=== PATIENT | female | born 1995 | race Caucasian/White ===

== ENCOUNTER 2019-05-29 07:37 | Inpatient (IN) ==
--- NOTE | 2019-05-29 11:43 | Progress Note ---
[facility] Anesthesia Checklist - Structural Data Admitted From: Home Planned Operative Procedure/s: exp laparotomy Consent for Planned Operative Procedure(s) Verified: Yes - Additional verifications Anesthesia Reactions: No Hx Blood Transfusions: No Blood Transfusion Reaction: No - Airway Assessment C-Spine Mobility Assessed: Yes TMJ Mobility Assessed: Yes Dentition: Good Dentition - Neurological Assessment Level of Consciousness: Awake, Alert, Appropriate - Anesthesia Plan Anesthesia Risk discussed: Yes Anesthesia Plan: Verified ASA Class: II Anesthesia Type: General Acuity:: asa2 [facility] History I have reviewed the patient's past medical history: Yes Medical History: Denies:: Cancer, Diabetes Mellitus Type 1, Diabetes Mellitus Type 2, Internal Pacemaker, MRSA, Seizures *Have you ever received a pneumonia vaccine?: No *Have you received a flu vaccine this season?: No Other Medical History: Denies: Blood Transfusion Reaction Anesthesia experience/problems:: none Other Surgeries: No: Pacemaker Amputation: No Fractures: No - *Social History Educational Level: Attended College Smoking Status: Never smoker Alcohol Intake: never Substance Use Type: denies use *Occupational Status:: employed Housing: house Household Members: spouse *Travel in the last 8 weeks: None Family Hx:: Coronary Artery Disease, Diabetes, Heart Attack, Hyperlipidemia, Hypertension, Kidney Disease
--- NOTE | 2019-05-29 11:44 | Progress Note ---
[facility] Anesthesia Record Part I Intake, IV Amount: 1,500 Estimated blood loss (mL): 150 Urine output (mL): 150 Blood Pressure: 122/59 SaO2: 95 Pulse Rate: 92 Respiratory Rate: 12 Temperature: 98.3 F Patient is:: Awake, Stable Stable to PACU at:: 11:40
--- NOTE | 2019-05-29 11:45 | Progress Note ---
[facility] Anesthesia Record Part II Discharge Time: 12:10 Destination: floor PACU nurse assessment reviewed?: Yes Patient Condition:: Good Anesthesia Complications:: None Swallowing reflex intact?: Yes Cyanosis?: No
--- NOTE | 2019-05-29 12:10 | Operative Note ---
Date of procedure: 05/29/19 Pre-op Diagnosis:: 1. Pelvic pain 2. Left adnexal mass 3. Previous C Section Post-op Diagnosis:: 1. Pelvic pain 2. Left adnexal mass 3. Previous C Section 4. Pelvic adhesions Procedure performed:: Exploratory laparotomy, left oophorectomy Surgeon:: Shell Roque MD FRONT MAN:: Isai Caicedo Anesthesia: GETA Estimated blood loss (mL): 150 Operative findings:: large left adnexal mass, 13 x 9cm Findings included fat and hair within the mass, c/w dermoid cyst Operative note:: The patient was taken to the operating room and general anesthesia was administered without difficulty. She was prepped and draped in the supine position. A Pfannenstiel skin incision was made approximately 2 cm above the pubic symphysis with a scalpel and carried down to the underlying layer of fascia. The fascia was incised in the midline and extended laterally sharply. The rectus muscles were sharply dissected off the fascia and in the midline. The peritoneum was entered sharply, with good visualization of the underlying structures. The peritoneal incision was extended bluntly. There were a moderate amount of pelvic adhesions extending to the peritoneum, which required approximately 25 minutes of dissection. Once the pelvis had adequate exposure, the left adnexal mass was elevated out of the deep pelvis and brought through the incision. The uterus was also visible and appeared normal; the right ovary was identified and also appeared normal. The left ovary was grossly enlarged, and completely encompassed by the mass. There were superficial areas that were both solid texture and very hard, as well as softer fatty areas. The Enseal was used to excise the left ovary, with excellent hemostasis at the pedicle. Once the mass was removed, it was opened on the du stand, and noted to contain fat and hair. The pelvis was copiously irrigated with a solution of sterile water. The peritoneum was closed with 2-0 Vicryl in a running fashion. The fascia was closed with #1 Vicryl in a running fashion. The subcutaneous fat was reapproximated with 2-0 vicryl and the skin was closed with carmen. The patient tolerated the procedure well; sponge/lap/needle and instrument counts were correct 2. She was taken to the PACU awake in stable condition. Estimated blood loss: 150 cc. Condition: stable Disposition: PACU Specimens:: left ovary/adnexal mass Complications:: None
[2019-05-30 06:39] LABS: Hematocrit 35.4 % (37.0-47.0); Hemoglobin 11.2 g/dL (12.2-16.2)
--- NOTE | 2019-05-30 13:44 | Pharmacy Consult Notes ---
[facility] Pharmacy VTE Monitoring - Patient Demographics Admission date: 05/30/19 Report Date: 05/30/19 Time: 13:43 Allergies/Adverse Reactions: Patient Allergies No Known Allergies Allergy (Verified 05/29/19 08:12) Height: 1.65 m Weight: 95.254 kg Patient Problems: Current Active Problems Pelvic adhesions (Acute) - VTE Risk Labs: VTE Related Lab Results Hgb 11.2 g/dL (12.2-16.2) L 05/30/19 06:15 Hct 35.4 % (37.0-47.0) L 05/30/19 06:15 - Prophylaxis VTE Prophylaxis Ordered?: Yes Types of VTE Prophylaxis: IPCS Thigh High Location of Applied Device: Bilateral Lower Extremeties
--- NOTE | 2019-05-30 18:28 | Progress Note ---
Internal Medicine - PN: Subj *Date: 05/30/19 *Time: 18:27 Interval history: Low grade temp elevation--abd soft--wound clean--will get CBC Exam Vital signs and Labs for Last 24 Hours: Temp Pulse Resp BP Pulse Ox 98.8 F 98 H 16 125/78 98 05/30/19 16:00 05/30/19 16:00 05/30/19 16:00 05/30/19 16:00 05/30/19 16:00 Laboratory Results - last 24 hr 05/30/19 06:15: Hgb 11.2 L, Hct 35.4 L I & O for Last 24 hours: Intake & Output 05/28/19 05/29/19 05/30/19 05/31/19 11:59 11:59 11:59 11:59 Intake Total 1500 / 1500 4923 / 4923 Output Total 150 / 150 1350 / 1350 Balance 1350 / 1350 3573 / 3573 Weight 210 lb
[2019-05-30 19:32] LABS: Red Cell Distribution Width 13.4 % (11.5-17.5)
[2019-05-30 19:36] LABS: Basophils % 0.2 % (0.1-2.0); Eosinophils # 0.1 K/mm3 (0.0-0.4); Eosinophils % 0.8 % (0.1-12.0); Hematocrit 35.9 % (37.0-47.0); Hemoglobin 11.7 g/dL (12.2-16.2); Lymphocytes # 2.1 K/mm3 (0.7-4.5); Lymphocytes % 22.1 % (10-50); Mean Corpuscular HGB Conc 32.7 g/dL (31.8-35.4); Mean Corpuscular Volume 86.7 fl (81-99); Mean Platelet Volume 8.3 fl (7.4-10.4); Monocytes # 0.4 K/mm3 (0.1-1.0); Monocytes % 4.4 % (1.7-9.3); Neutrophils % 72.5 % (37.0-80.0); Platelet Count 242 K/mm3 (142-424); Red Blood Count 4.14 M/mm3 (4.20-5.40); White Blood Count 9.7 K/mm3 (4.8-10.8)
--- NOTE | 2019-05-31 08:22 | Progress Note ---
Internal Medicine - PN: Subj *Date: 05/31/19 *Time: 08:20 Interval history: This is postop day #2. The patient is now afebrile, but she did have a temp of 102 orally at one time during the night, treated with Tylenol. Her abdomen is soft. Her wound is clean. Her calves are nontender. She is using her spirometer, but is not deep breathing. CBC is normal. I am going to get a chest x-ray this morning. Will consider antibiotics if she spikes another temperature. Exam Vital signs and Labs for Last 24 Hours: Temp Pulse Resp BP Pulse Ox 98.9 F 99 H 16 127/66 93 L 05/31/19 04:00 05/31/19 04:00 05/31/19 04:00 05/31/19 04:00 05/31/19 04:00 Laboratory Results - last 24 hr 05/30/19 19:05: WBC 9.7, RBC 4.14 L, Hgb 11.7 L, Hct 35.9 L, MCV 86.7, MCH 28.4, MCHC 32.7, RDW 13.4, Plt Count 242, MPV 8.3, Neut % (Auto) 72.5, Lymph % (Auto) 22.1, [place] % (Auto) 4.4, Eos % (Auto) 0.8, Baso % (Auto) 0.2, Neut # (Auto) 7.0, Lymph # (Auto) 2.1, [place] # (Auto) 0.4, Eos # (Auto) 0.1, Baso # (Auto) 0.0 I & O for Last 24 hours: Intake & Output 05/28/19 05/29/19 05/30/19 05/31/19 11:59 11:59 11:59 11:59 Intake Total 1500 / 1500 4923 / 4923 2496 / 2496 Output Total 150 / 150 1350 / 1350 Balance 1350 / 1350 3573 / 3573 2496 / 2496 Weight 210 lb
--- NOTE | 2019-05-31 09:44 | Progress Note ---
Internal Medicine - PN: Subj *Date: 05/31/19 *Time: 09:43 Interval history: Temp this morning again 102.5 p.o. Chest x-ray report is pending. Going to repeat her CBC and get blood cultures and a urinalysis start her empirically on Levaquin 500 mg IV daily. Exam Vital signs and Labs for Last 24 Hours: Temp Pulse Resp BP Pulse Ox 98.9 F 99 H 16 127/66 93 L 05/31/19 04:00 05/31/19 04:00 05/31/19 04:00 05/31/19 04:00 05/31/19 04:00 Laboratory Results - last 24 hr 05/30/19 19:05: WBC 9.7, RBC 4.14 L, Hgb 11.7 L, Hct 35.9 L, MCV 86.7, MCH 28.4, MCHC 32.7, RDW 13.4, Plt Count 242, MPV 8.3, Neut % (Auto) 72.5, Lymph % (Auto) 22.1, [place] % (Auto) 4.4, Eos % (Auto) 0.8, Baso % (Auto) 0.2, Neut # (Auto) 7.0, Lymph # (Auto) 2.1, [place] # (Auto) 0.4, Eos # (Auto) 0.1, Baso # (Auto) 0.0 I & O for Last 24 hours: Intake & Output 05/28/19 05/29/19 05/30/19 05/31/19 11:59 11:59 11:59 11:59 Intake Total 1500 / 1500 4923 / 4923 2496 / 2496 Output Total 150 / 150 1350 / 1350 Balance 1350 / 1350 3573 / 3573 2496 / 2496 Weight 210 lb
[2019-05-31 09:53] LABS: Microscopic, Urine URINE MICROSCOPIC (MICROSCOPIC)
[2019-05-31 10:29] LABS: Basophils % 0.3 % (0.1-2.0); Eosinophils % 0.4 % (0.1-12.0); Hematocrit 35.1 % (37.0-47.0); Hemoglobin 11.5 g/dL (12.2-16.2); Lymphocytes # 1.9 K/mm3 (0.7-4.5); Mean Corpuscular HGB Conc 32.7 g/dL (31.8-35.4); Mean Corpuscular Volume 85.5 fl (81-99); Mean Platelet Volume 8.2 fl (7.4-10.4); Monocytes # 0.6 K/mm3 (0.1-1.0); Monocytes % 6.6 % (1.7-9.3); Neutrophils # 6.8 K/mm3 (1.8-7.8); Neutrophils % 72.8 % (37.0-80.0); Platelet Count 238 K/mm3 (142-424); Red Blood Count 4.11 M/mm3 (4.20-5.40); Red Cell Distribution Width 13.3 % (11.5-17.5); White Blood Count 9.4 K/mm3 (4.8-10.8)
[2019-05-31 11:30] LABS: Appearance,Urine CLEAR (Clear); Bilirubin,Urine Negative (Negative); Blood, Urine Negative (Negative); Color,Urine YELLOW (Yellow); Glucose,Urine (UA) Negative (Negative); Ketones,Urine Negative (Negative); Leukocyte Esterase,Urine Negative (Negative); Protein,Urine Negative (Negative); Specific Gravity, Urine 1.015 (1.005-1.030); Urobilinogen,Urine 0.2 EU/dl (0.2)
[2019-05-31 11:38] LABS: Bacteria,Urine Trace /lpf; Squamous Epithelial Cell,Urine Occasional #/hpf (0-5); WBC,Urine Occasional #/hpf (0-3)
--- NOTE | 2019-06-01 08:55 | Progress Note ---
Internal Medicine - PN: Subj *Date: 06/01/19 *Time: 08:54 (This is postop day #3. The patient is afebrile at this time, but she did spike a temp again yesterday and has been started on oral Levaquin. Her abdomen is soft. Her wound is clean. Willian remain in situ. She is eating and ambulating and has had a bowel movement. She will be discharged today on oral antibiotics.) Exam Vital signs and Labs for Last 24 Hours: Temp Pulse Resp BP Pulse Ox 98.3 F 88 20 147/91 H 95 06/01/19 08:00 06/01/19 08:00 06/01/19 08:00 06/01/19 08:00 06/01/19 08:00 Laboratory Results - last 24 hr 05/31/19 09:25: Urine Color Yellow, Urine Appearance Clear, Urine pH 6.0, Ur Specific [place] 1.015, Urine Protein Negative, Urine Glucose (UA) Negative, Urine Ketones Negative, Urine Blood Negative, Urine Nitrate Negative, Urine Bilirubin Negative, Urine Urobilinogen 0.2, Ur Leukocyte Esterase Negative, Urine RBC None, Urine WBC Occasional, Ur Squamous Epith Cells Occasional, Urine Bacteria Trace 05/31/19 10:00: WBC 9.4, RBC 4.11 L, Hgb 11.5 L, Hct 35.1 L, MCV 85.5, MCH 28.0, MCHC 32.7, RDW 13.3, Plt Count 238, MPV 8.2, Neut % (Auto) 72.8, Lymph % (Auto) 20.0, [place] % (Auto) 6.6, Eos % (Auto) 0.4, Baso % (Auto) 0.3, Neut # (Auto) 6.8, Lymph # (Auto) 1.9, [place] # (Auto) 0.6, Eos # (Auto) 0.0, Baso # (Auto) 0.0 I & O for Last 24 hours: Intake & Output 05/29/19 05/30/19 05/31/19 06/01/19 11:59 11:59 11:59 11:59 Intake Total 1500 / 1500 4923 / 4923 2496 / 2496 1475 / 1475 Output Total 150 / 150 1350 / 1350 Balance 1350 / 1350 3573 / 3573 2496 / 2496 1475 / 1475 Weight 210 lb
--- NOTE | 2019-06-01 08:59 | Discharge Summary ---
General - General Admission date:: 05/29/19 Discharge date: 06/01/19 (This 23-year-old white female was admitted on 05/29/[address] Roque and taken to the operating room for a large left adnexal mass (pathology pending, but presumably a dermoid cyst). She underwent an exploratory laparotomy and left oophorectomy without apparent complications. Postoperatively, she did well initially. She then spiked a temp on 2 occasions to 102+ orally. A septic work-up included a CBC and urinalysis (both normal) and a normal chest x-ray. Blood cultures were taken and are pending. Her calves have remained nontender. Her wound is clean. Willian are in situ. Her abdomen is soft. She is eating and ambulating, and has had a bowel movement. She has been started empirically on p.o. Levaquin, 500 mg daily, and will be discharged today on that medication. Her hemoglobin is 11.5 g. He is not a smoker. She is given appropriate instructions as to diet, exercise, and wound care, and she is to call Dr. Roque's office tomorrow to set up an appointment for later in the week for staple removal and further evaluation.) Objective Vital signs: Temp Pulse Resp BP Pulse Ox 98.3 F 88 20 147/91 H 95 06/01/19 08:00 06/01/19 08:00 06/01/19 08:00 06/01/19 08:00 06/01/19 08:00 Results Labs on day of discharge: Labs from last 24 hours 05/31/19 05/31/19 10:00 09:25 WBC 9.4 RBC 4.11 L Hgb 11.5 L Hct 35.1 L MCV 85.5 MCH 28.0 MCHC 32.7 RDW 13.3 Plt Count 238 MPV 8.2 Neut % (Auto) 72.8 Lymph % (Auto) 20.0 [place] % (Auto) 6.6 Eos % (Auto) 0.4 Baso % (Auto) 0.3 Neut # (Auto) 6.8 Lymph # (Auto) 1.9 [place] # (Auto) 0.6 Eos # (Auto) 0.0 Baso # (Auto) 0.0 Urine Color Yellow Urine Appearance Clear Urine pH 6.0 Ur Specific [place] 1.015 Urine Protein Negative Urine Glucose (UA) Negative Urine Ketones Negative Urine Blood Negative Urine Nitrate Negative Urine Bilirubin Negative Urine Urobilinogen 0.2 Ur Leukocyte Esterase Negative Urine RBC None Urine WBC Occasional Ur Squamous Epith Cells Occasional Urine Bacteria Trace Discharge Plan - Patient Discharge Instructions - Follow up Plan Home Medications: Home Medications Medication Instructions Recorded Confirmed Type Hydrocodone/Acetaminophen [[place] 1 tab PO TID PRN 3 Days #10 tab 05/27/19 05/29/19 Rx 7.5-325 Tablet] Ondansetron [Zofran 4mg ODT] 4 mg PO Q6H PRN 05/30/19 05/30/19 History Prescriptions/Medication Reconciliation: No Action Hydrocodone/Acetaminophen [[place] 7.5-325 Tablet] 1 tab PO TID PRN 3 Days #10 tab PRN Reason: Moderate Pain Ondansetron [Zofran 4mg ODT] 4 mg PO Q6H PRN PRN Reason: Nausea And Vomiting - Problem Reconciliation Problems Reviewed?: Yes
== END 2019-06-01 09:42 | disposition home or self-care (01) | DRG 743 ==
LOC: OB 07:37 → OR 07:37 → OBSVTOIN 13:45 → OB 13:57
PROVIDERS: ADMIT Obstetrics & Gynecology; ATTEND Obstetrics & Gynecology
CPT/HCPCS: 36415; 71010; 71045; 81001; 85014; 85018; 85025; 87040; 94761; 96374; J1956; J2405; J2710

== ENCOUNTER 2020-04-03 15:02 | Emergency (ER) | payer BC, SELFPAY ==
[2020-04-03 15:03] VITALS: BP 136/78; PULSE 108; RESP 20; TEMP 36.8; O2SAT 97; BMI 34.1
--- NOTE | 2020-04-03 16:02 | HMH.EDUTC ---
[facility] [place]ression: Viral syndrome Disposition: Home, Self-Care Condition on Discharge: Good Instructions: DI for Viral Syndrome Additional Instructions: Drink plenty of fluids. Take tylenol or ibuprofen for pain or fever. Take the medications as directed. Follow up with your regular doctor. GO TO THE ER FOR ANY WORSENING SYMPTOMS Off work and self quarantine until the results of your COVID-19 test are back. Prescriptions: Ondansetron [Zofran 4mg ODT] 4 mg PO Q8HP PRN #10 tab.rapdis PRN Reason: Nausea Transmission Status: Received by [facility] # Azithromycin [Z-Jose Guadalupe 250mg Tab*] 250 mg PO UD DOSE PK #6 tab Transmission Status: Received by [facility] # Referrals: Provider,Referral, MD [Primary Care Provider] - Forms: Work/School Release Time of Disposition: 16:08 Medical Decision Making - Medical Records Medical records reviewed: No: I reviewed the patient's medical records. - Braxton Inquiry Pt receiving controlled substance: No Vital Signs: 04/03/20 15:03 04/03/20 16:20 Temperature 98.3 F 98.3 F Temperature Source Oral Oral Pulse Rate 108 H Pulse Rate [Radial] 108 H Respiratory Rate 20 20 Blood Pressure 136/78 Blood Pressure [Right Arm] 136/78 Blood Pressure Mean [Right Arm] 97 Blood Pressure Source Automatic Cuff Blood Pressure Source [Right Arm] Automatic Cuff Blood Pressure Position Sitting Blood Pressure Position [Right Arm] Sitting 02 Sat by Pulse Oximetry 97 Oxygen Delivery Method Room Air Room Air - Lab Data Lab results reviewed: Yes: I reviewed the patient's lab results. Lab Results 04/03/20 15:37: Influenza Type A Ag Negative, Influenza Type B Ag Negative Orders (Tests/Meds): ORDERS Category Date Time Status SARS-CoV-2, ALIREZA Stat Lab 04/03/20 15:55 Re[place] [facility] [place] - General Stated complaint: Nausea, body aches, little cough Time Seen by Provider: 04/03/20 16:02 Mode of Arrival: Ambulatory Source of Information: Patient Limitations: No Limitations Description of Symptoms (Recalled from Triage Doc. by RN): nausea,diarrhea, headache, body aches, weakness HEENT Symptoms (Recalled from RN notes): No Resp Symptoms (Recalled from RN notes): No Skin Symptoms (Recalled from RN notes): No MS Symptoms (Recalled from RN notes): No Functional Status (Recalled from RN notes): wnl - History of Present Illness Provider Complaint: She c/o n/v/d, mild dry cough and feeling bad since yesterday. - Related Data Home Medications Medication Instructions Recorded Confirmed Ondansetron [Zofran 4mg ODT] 4 mg PO Q6H PRN 05/30/19 06/04/19 levofloxacin 500 mg tablet PO #10 tab 06/04/19 06/04/19 Previous Rx's Medication Instructions Recorded Hydromorphone HCl [Dilaudid 2mg 2 mg PO Q6HP PRN #20 tab 06/01/19 tablet] Azithromycin [Z-Jose Guadalupe 250mg Tab*] 250 mg PO UD DOSE PK #6 tab 04/03/20 Ondansetron [Zofran 4mg ODT] 4 mg PO Q8HP PRN #10 tab.rapdis 04/03/20 Allergies Allergy/AdvReac Type Severity Reaction Status Date / Time No Known Allergies Allergy Verified 06/04/19 08:56 - Worker's Comp Is this a Worker's Comp case?: No [facility] History - Hepatitis A Screen Drug use history?: No High risk sexual behaviors?: No History of sexually transmitted infection?: No Currently employed?: No Childcare worker?: No Do you have indoor plumbing?: Yes Do you have electricity?: Yes Attestation statement:: This patient has been screened for Hepatitis A risk factors. I have reviewed the patient's past medical history: Yes Medical History: Denies:: Cancer, Diabetes Mellitus Type 1, Diabetes Mellitus Type 2, Internal Pacemaker, MRSA, Seizures Other Medical History: Denies: Blood Transfusion Reaction Other Surgeries: No: Pacemaker Amputation: No Fractures: No - Social History Smoking Status: Never smoker Alcohol Intake: never Substance Use Type: denies use Occupational Status
[2020-04-03 16:13] LABS: UTC Influenza A Antigen Negative (Negative)
[2020-04-03 16:14] LABS: UTC Influenza B Antigen Negative (Negative)
[2020-04-03 16:20] VITALS: BP 136/78; PULSE 108; RESP 20; TEMP 36.8; O2SAT 97
[2020-04-05 15:08] LABS: Covid-19 Nasal PCR Sendout Lex NOT DETECTED
== END 2020-04-03 16:21 | disposition home or self-care (01) ==
PROVIDERS: Emergency Provider Nurse Practitioner Family
DX: B34.9 Viral infection, unspecified (principal)
CPT/HCPCS: 87804; 99202; U0004

== ENCOUNTER 2020-05-31 19:51 | Emergency (ER) | payer BC, SELFPAY ==
[2020-05-31 20:02] VITALS: BP 144/91; PULSE 109; RESP 20; TEMP 36.9; O2SAT 98; BMI 34.1
--- NOTE | 2020-05-31 20:08 | HMH.EDUTC ---
[facility] [place] Clinical Impression: Sinusitis Qualifiers: Sinusitis location: unspecified location Chronicity: unspecified Qualified Code(s): J32.9 - Chronic sinusitis, unspecified Disposition: Home, Self-Care Condition on Discharge: Good Instructions: Sinusitis, Sinus Headache, DI for Sinusitis Additional Instructions: *Monitor Temp, Over the counter Motrin or Tylenol as directed/as needed Tylenol every 4 hours and Motrin every 6 hours (as long as your family doctor has told you that you can take it) for fever or pain. and straight to ER if unable to lower temp less than 101.0 after medication given *Warm salt water gargles may help to soothe the throat *Throat Lozenges *Warm fluids like tea with honey may help to soothe the throat *Sleep elevated *Humidifier/Vaporizer *Flonase 2 sprays in each nostril daily but be aware that it may take 2-3 days before you notice improvement Take medication as prescribe You was tested for COVID in the [facility] make sure to call back in the next 48-72 hours to see if your result is back and what the test result is You was given handout for COVID Self Quarantine and Self Isolation make sure to follow these instructions to help prevent the spread of COVID Follow up IMMEDIATELY for new or worsening symptoms or no Noticeable improvement over the next 48-72 hours. 911 for difficulty breathing or swallowing Prescriptions: Fluticasone Propionate [Flonase 50mcg nasal spray 16gm] 1 - 2 spr NS DAILY #1 bottle Transmission Status: Pending to [facility] # methylPREDNISolone [Medrol 4mg tab] 4 mg PO DIRECTED #21 tab Transmission Status: Pending to [facility] # Azithromycin [Z-Jose Guadalupe 250mg Tab] 250 mg PO DIRECTED #6 tab Transmission Status: Pending to [facility] # Referrals: PCP,No [Primary Care Provider] - As needed Forms: Work/School Release Time of Disposition: 20:28 Medical Decision Making - Braxton Inquiry Pt receiving controlled substance: No Braxton was queried for this patient: No Vital Signs: 05/31/20 20:02 Temperature 98.4 F Temperature Source Oral Pulse Rate [Right Brachial] 109 H Respiratory Rate 20 Blood Pressure [Right Arm] 144/91 H Blood Pressure Mean [Right Arm] 108 Blood Pressure Source [Right Arm] Automatic Cuff Blood Pressure Position [Right Arm] Sitting 02 Sat by Pulse Oximetry 98 Oxygen Delivery Method Room Air [facility] [place] HPI - General Stated complaint: [place],Facial pressure.ear and teeth pain Time Seen by Provider: 05/31/20 20:08 Mode of Arrival: Ambulatory Source of Information: Patient Limitations: No Limitations Description of Symptoms (Recalled from Triage Doc. by RN): PATIENT C/O SINUS PRESSURE AND HEADACHE X 3 DAYS. SHE HAS BEEN IN CONTACT WITH COVID HEENT Symptoms (Recalled from RN notes): Yes Resp Symptoms (Recalled from RN notes): No Skin Symptoms (Recalled from RN notes): No MS Symptoms (Recalled from RN notes): No Functional Status (Recalled from RN notes): WNL - History of Present Illness Provider Complaint: Patient states that she has been having sinus pain and pressure that has continued to get worse over the last couple of days States that she has been having pressure like feeling even in her teeth States that she was exposed to someone recently that tested positive for COVID - Related Data Home Medications Medication Instructions Recorded Confirmed Ondansetron [Zofran 4mg ODT] 4 mg PO Q6H PRN 05/30/19 06/04/19 levofloxacin 500 mg tablet PO #10 tab 06/04/19 06/04/19 Previous Rx's Medication Instructions Recorded Hydromorphone HCl [Dilaudid 2mg 2 mg PO Q6HP PRN #20 tab 06/01/19 tablet] Azithromycin [Z-Jose Guadalupe 250mg Tab*] 250 mg PO UD DOSE PK #6 tab 04/03/20 Ondansetron [Zofran 4mg ODT] 4 mg PO Q8HP PRN #10 tab.rapdis 04/03/20 Azithromycin [Z-Jose Guadalupe 250mg Tab] 250 mg PO DIRECTED #6 tab 05/31/20 Fluticasone Propionate [Flonase 1 - 2 spr NS DAILY #1 bottle 05/31/20 50mcg [facility]
[2020-05-31 20:31] VITALS: BP 144/91; PULSE 109; RESP 20; TEMP 36.9; O2SAT 98
[2020-06-02 22:34] LABS: Covid-19 Nasal PCR Sendout Lex Not Detected
== END 2020-05-31 20:33 | disposition home or self-care (01) ==
PROVIDERS: Emergency Provider Nurse Practitioner
DX: J32.9 Chronic sinusitis, unspecified (principal); Z20.828 Contact with and (suspected) exposure to other viral communicable diseases
CPT/HCPCS: 99201; U0004

== ENCOUNTER 2020-11-23 20:26 | Emergency (ER) | payer BC, SELFPAY ==
[2020-11-23 20:36] VITALS: BP 153/96; PULSE 89; RESP 16; TEMP 37; O2SAT 96; BMI 32.4
--- NOTE | 2020-11-23 20:53 | HMH.EDUTC ---
[facility] [place] Disposition Clinical Impression: Otitis media Qualifiers: Otitis media type: unspecified Laterality: right Qualified Code(s): H66.91 - Otitis media, unspecified, right ear Disposition: Home, Self-Care Condition on Discharge: Good Instructions: Middle Ear Infection, DI for Nausea -- Adult, Sore Throat, DI for COVID-19 (Suspected or Confirmed ) Additional Instructions: *Monitor Temp, Over the counter Motrin or Tylenol as directed/as needed Tylenol every 4 hours and Motrin every 6 hours (as long as your family doctor has told you that you can take it) for fever or pain. and straight to ER if unable to lower temp less than 101.0 after medication given *Warm salt water gargles may help to soothe the throat *Throat Lozenges *Warm fluids like tea with honey may help to soothe the throat *Sleep elevated *Humidifier/Vaporizer *Flonase 2 sprays in each nostril daily but be aware that it may take 2-3 days before you notice improvement *Take medication as prescribed Your throat swab was sent for culture. Those results are typically sent to your primary care. Be sure to follow up in 2-3 days with your family doctor/primary care physician if no improvement so they can review those result and treat if necessary. If you don?t have a primary care doctor, I recommend you get one but in the mean time, you will have to return to a walk in clinic Follow up IMMEDIATELY for new or worsening symptoms or no Noticeable improvement over the next 48-72 hours. 911 for difficulty breathing or swallowing You were tested for today for COVID19 your test result should be back in the next 24-48 hours, you may call to the [facility] to see if your test results are back in the next 48 hours [phone] [facility] hours are 9am-9pm You was given a handout with instructions for Self Quarantine and Self isolation for while you wait on test results and what to do if they are positive If you are positive the Health Dept will be contacting you also Prescriptions: Amoxicillin [Amoxicillin 875MG Tab] 875 mg PO Q12H #20 tab Transmission Status: [facility] Fluticasone Propionate [Flonase 50mcg nasal spray 16gm] 1 spr NS DAILY #1 bottle Transmission Status: Pending to [facility] Ondansetron [Zofran 4mg ODT] 4 mg PO TIDP PRN #6 tab PRN Reason: Nausea Transmission Status: Pending to [facility] Referrals: PCP,No [Primary Care Provider] - As needed Time of Disposition: 21:01 Medical Decision Making - Braxton Inquiry Pt receiving controlled substance: No Braxton was queried for this patient: No Vital Signs: 11/23/20 20:36 Temperature 98.6 F Temperature Source Oral Pulse Rate [Right] 89 Respiratory Rate 16 Blood Pressure [Right Arm] 153/96 H Blood Pressure Mean [Right Arm] 115 Blood Pressure Source [Right Arm] Automatic Cuff Blood Pressure Position [Right Arm] Sitting 02 Sat by Pulse Oximetry 96 Oxygen Delivery Method Room Air - Lab Data Lab results reviewed: Yes: I reviewed the patient's lab results. Orders (Tests/Meds): ORDERS Category Date Time Status Covid-19 Nasal PCR ([facility]) Routine Lab 11/23/20 20:49 Ordered Medical Decision Narrative: Patient denies and states that she has take zofran before without reaction or complications with her medication [facility] [place] HPI - General Stated complaint: sore throat,dainage LR ear Time Seen by Provider: 11/23/20 20:53 Mode of Arrival: Ambulatory Source of Information: Patient Limitations: No Limitations Description of Symptoms (Recalled from Triage Doc. by RN): SORE THROAT, PAIN IN RIGHT EAR, GROVE, NASAL DRAINAGE, NAUSEA, DIARHEA. HEENT Symptoms (Recalled from RN notes): Yes (SORE THROAT AND GROVE) Resp Symptoms (Recalled from RN notes): No Skin Symptoms (Recalled from RN notes): No MS Symptoms (Recalled from RN notes): No Functional Status (Recalled from RN notes): NA - History of Present Illness Provider Complaint: Patient states that she has been hav
[2020-11-23 20:54] VITALS: BP 150/97; PULSE 85; RESP 14; TEMP 36.9
[2020-11-23 21:01] LABS: UTC Influenza A Antigen Negative (Negative); UTC Strep Screen (Rapid) Negative (Negative)
[2020-11-23 21:02] LABS: UTC Influenza B Antigen Negative (Negative)
== END 2020-11-23 21:07 | disposition home or self-care (01) ==
PROVIDERS: Emergency Provider Nurse Practitioner
DX: H66.91 Otitis media, unspecified, right ear (principal); Z20.822 Contact with and (suspected) exposure to COVID-19
CPT/HCPCS: 87804; 87880; 99202; G0463; U0003

== ENCOUNTER 2021-06-07 16:15 | Emergency (ER) | payer BC, SELFPAY ==
[2021-06-07 17:26] VITALS: BP 131/89; PULSE 72; RESP 16; TEMP 37.1; O2SAT 98; BMI 31.6
--- NOTE | 2021-06-07 17:31 | HMH.EDUTC ---
[facility] [place] Disposition Clinical Impression: Viral syndrome, Exposure to COVID-19 virus Disposition: Home, Self-Care Condition on Discharge: Good Instructions: DI for COVID-19 (Suspected or Confirmed ), Preventing the Spread of Coronavirus Discharge Instructions Additional Instructions: *Monitor Temp, Over the counter Motrin or Tylenol as directed/as needed Tylenol every 4 hours and Motrin every 6 hours (as long as your family doctor has told you that you can take it) for fever or pain. and straight to ER if unable to lower temp less than 101.0 after medication given *Warm salt water gargles may help to soothe the throat *Throat Lozenges *Warm fluids like tea with honey may help to soothe the throat *Sleep elevated *Humidifier/Vaporizer *Flonase 2 sprays in each nostril daily but be aware that it may take 2-3 days before you notice improvement Follow up IMMEDIATELY for new or worsening symptoms or no Noticeable improvement over the next 48-72 hours. 911 for difficulty breathing or swallowing You were tested for today for COVID19 your test result should be back in the next 24-48 hours, you was given instructions on how to [facility] for your results. If you do not have internet or access you may call the [facility]. You was given a handout with instructions for Self Quarantine and Self isolation for while you wait on test results and what to do if they are positive If you are positive the Health Dept will be contacting you also Make sure to take your Vitamins Vit. C Vit D and Zinc if you can take them Referrals: Provider,Referral, MD [Primary Care Provider] - As needed Forms: Work/School Release Time of Disposition: 17:35 Medical Decision Making - Braxton Inquiry Pt receiving controlled substance: No Braxton was queried for this patient: No Vital Signs: 06/07/21 17:26 Temperature 98.8 F Temperature Source Oral Pulse Rate [Right] 72 Respiratory Rate 16 Blood Pressure [Right Arm] 131/89 Blood Pressure Mean [Right Arm] 103 02 Sat by Pulse Oximetry 98 Orders (Tests/Meds): ORDERS Category Date Time Status Covid-19 Nasal PCR ([facility]) Routine Lab 06/07/21 17:07 Received [facility] HPI - General Stated complaint: Congestion wants Covid test Time Seen by Provider: 06/07/21 17:31 Description of Symptoms (Recalled from Triage Doc. by RN): COVID TEST, CONGESTION, EXPOSURE TO HEENT Symptoms (Recalled from RN notes): No Resp Symptoms (Recalled from RN notes): No Skin Symptoms (Recalled from RN notes): No MS Symptoms (Recalled from RN notes): No Functional Status (Recalled from RN notes): WNL - History of Present Illness Provider Complaint: Patient states that was recentlly dx with COVID and now she is having symptoms State that she is having stuffy nose and body aches so she wanted to get tested to see if she may have it now - Related Data Home Medications Medication Instructions Recorded Confirmed Ondansetron [Zofran 4mg ODT] 4 mg PO Q6H PRN 05/30/19 06/04/19 levofloxacin 500 mg tablet PO #10 tab 06/04/19 06/04/19 Previous Rx's Medication Instructions Recorded Hydromorphone HCl [Dilaudid 2mg 2 mg PO Q6HP PRN #20 tab 06/01/19 tablet] Azithromycin [Z-Jose Guadalupe 250mg Tab*] 250 mg PO UD DOSE PK #6 tab 04/03/20 Ondansetron [Zofran 4mg ODT] 4 mg PO Q8HP PRN #10 tab.rapdis 04/03/20 Azithromycin [Z-Jose Guadalupe 250mg Tab] 250 mg PO DIRECTED #6 tab 05/31/20 Fluticasone Propionate [Flonase 1 - 2 spr NS DAILY #1 bottle 05/31/20 50mcg nasal spray 16gm] methylPREDNISolone [Medrol 4mg 4 mg PO DIRECTED #21 tab 05/31/20 tab] Amoxicillin [Amoxicillin 875MG 875 mg PO Q12H #20 tab 11/23/20 Tab] Fluticasone Propionate [Flonase 1 spr NS DAILY #1 bottle 11/23/20 50mcg nasal spray 16gm] Ondansetron [Zofran 4mg ODT] 4 mg PO TIDP PRN #6 tab 11/23/20 Allergies Allergy/AdvReac Type Severity Reaction Status Date / Time No Known Allergies Allergy Verified 06/07/21 17:29
[2021-06-07 17:57] VITALS: BP 131/89; PULSE 72; RESP 16; TEMP 37.1; O2SAT 98
== END 2021-06-07 17:58 | disposition home or self-care (01) ==
PROVIDERS: Emergency Provider Nurse Practitioner
DX: Z20.822 Contact with and (suspected) exposure to COVID-19 (principal)
CPT/HCPCS: 99202; G0463; U0003

== ENCOUNTER 2021-06-12 21:22 | Emergency (ER) | payer BC, SELFPAY ==
[2021-06-12 21:23] VITALS: BP 156/101; PULSE 111; RESP 18; TEMP 36.9; O2SAT 96; BMI 31.6
[2021-06-12 22:00] VITALS: BP 132/84; PULSE 79; RESP 18; O2SAT 96
--- NOTE | 2021-06-12 22:27 | CT_ITS ---
PROCEDURE INFORMATION: Exam: CT Abdomen And Pelvis With Contrast Exam date and time: 06/12/2021 10:27 PM Age: 25 years old Clinical indication: Nausea; Abdominal pain; Epigastric; Prior surgery; Surgery type: Dermoid cyst TECHNIQUE: Imaging protocol: Computed tomography of the abdomen and pelvis with contrast. Radiation optimization: All CT scans at this facility use at least one of these dose optimization techniques: automated exposure control; mA and/or kV adjustment per patient size (includes targeted exams where dose is matched to clinical indication); or iterative reconstruction. Contrast material: ISOVUE; Contrast volume: 75 ml; Contrast route: IV; COMPARISON: CT ABDOMEN PELVIS WO CON 05/27/2019 2:49 PM FINDINGS: Liver: Fatty liver. The liver is enlarged. Gallbladder and bile ducts: Normal. No calcified stones. No ductal dilation. Pancreas: Normal. No ductal dilation. Spleen: Normal. No splenomegaly. Adrenal glands: Normal. No mass. Kidneys and ureters: Normal. No hydronephrosis. Stomach and bowel: Again seen is thickening of the colonic mucosa with fatty replacement especially in the cecum, ascending and sigmoid colon. Appendix: No evidence of appendicitis. Intraperitoneal space: Unremarkable. No free air. No significant fluid collection. Vasculature: Unremarkable. No abdominal aortic aneurysm. Lymph nodes: Unremarkable. No enlarged lymph nodes. Urinary bladder: Unremarkable as visualized. Reproductive: Unremarkable as visualized. Bones/joints: Unremarkable. No acute fracture. Soft tissues: Small fat containing umbilical hernia. IMPRESSION: 1. No acute appearing findings. 2. Fatty enlarged liver. 3. Small fat containing umbilical hernia.
[2021-06-12 22:34] LABS: Microscopic, Urine URINE MICROSCOPIC (MICROSCOPIC)
[2021-06-12 22:35] LABS: Appearance,Urine SL CLOUDY (Clear); Bilirubin,Urine Negative (Negative); Blood, Urine 3+ (Negative); Color,Urine YELLOW (Yellow); Glucose,Urine (UA) 3+ (Negative); Ketones,Urine TRACE (Negative); Leukocyte Esterase,Urine Negative (Negative); Nitrate,Urine Negative (Negative); Protein,Urine Negative (Negative); Specific Gravity, Urine 1.025 (1.005-1.030); Urobilinogen,Urine 0.2 EU/dl (0.2)
[2021-06-12 22:39] LABS: Urine Pregnancy, HCG Qual. Negative (Negative)
[2021-06-12 22:43] LABS: Basophils # 0.1 K/mm3 (0-0.2); Basophils % 0.8 % (0.1-2.0); Eosinophils # 0.2 K/mm3 (0.0-0.4); Eosinophils % 1.8 % (0.1-12.0); Hematocrit 45.4 % (37.0-47.0); Hemoglobin 15.4 g/dL (12.2-16.2); Lymphocytes # 4.6 K/mm3 (0.7-4.5); Lymphocytes % 43.2 % (10-50); Mean Corpuscular Hemoglobin 29.5 pg (27.0-31.2); Mean Corpuscular Volume 86.7 fl (81-99); Mean Platelet Volume 9.8 fl (7.4-10.4); Monocytes # 0.3 K/mm3 (0.1-1.0); Monocytes % 2.8 % (1.7-9.3); Neutrophils # 5.5 K/mm3 (1.8-7.8); Neutrophils % 51.4 % (37.0-80.0); Platelet Count 205 K/mm3 (142-424); Red Blood Count 5.24 M/mm3 (4.20-5.40); White Blood Count 10.7 K/mm3 (4.8-10.8)
[2021-06-12 22:44] LABS: Bacteria,Urine Trace /lpf; RBC,Urine 50-100 #/hpf (0-3); Squamous Epithelial Cell,Urine Occasional #/hpf (0-5)
[2021-06-12 22:50] LABS: Alanine Aminotransferase 71 U/L (12-78); Albumin Level 4.3 g/dl (3.5-5.0); Albumin/Globulin Ratio 1.2 (1.1-1.8); Alkaline Phosphatase 99 U/L (38-126); Amylase 50 U/L (30-110); Aspartate Amino Transferase 48 U/L (14-36); Bilirubin,Total 0.8 mg/dl (0.2-1.3); Blood Urea Nitrogen 11 mg/dl (7-17); Calcium 9.4 mg/dl (8.4-10.2); Carbon Dioxide 24 mmol/L (22.0-30.0); Chloride 95 mmol/L (98-107); Creatinine Clearance Estimated 287 mL/min (50-200); Estimated Glomerular Filt Rate 191 ml/min (>60); GFR (African American) 232 ML/MIN (>60); Globulin 3.7 g/dL (1.3-3.2); Glucose 346 mg/dl (74-100); Lipase 178 U/L (23-300); Sodium 133 mmol/L (136-145)
[2021-06-12 23:00] VITALS: BP 131/84; PULSE 85; O2SAT 98
[2021-06-12 23:08] LABS: Erythrocyte Sedimentation Rate 17 mm/hr (0-20)
[2021-06-12 23:09] LABS: Procalcitonin 0.075 ng/mL (0.0-2.0)
--- NOTE | 2021-06-13 01:46 | HMH.EDNVD ---
ED Disposition Clinical Impression: Elevated serum glucose Abdominal pain Qualifiers: Abdominal location: right upper quadrant Qualified Code(s): R10.11 - Right upper quadrant pain Diabetes mellitus Qualifiers: Diabetes mellitus type: type 2 Diabetes mellitus terminal operations supervisor insulin use: unspecified terminal operations supervisor insulin use status Diabetes mellitus complication status: with other specified complication Qualified Code(s): E11.69 - Type 2 diabetes mellitus with other specified complication Disposition: Home, Self-Care Condition on Discharge: Good Instructions: DI for Acute Abdominal Pain Additional Instructions: fluids and see pcp for follow up Referrals: Lashaun Krause APRN [Primary Care Provider] - - Critical Care Critical Care Time: No Attestation: On 06/12/21, the high probability of a clinically significant, sudden or life threatening deterioration of the following system(s) required my full and direct attention, intervention and personal management. The time I documented below is in addition to time spent performing reported procedures but includes the following listed in this critical care notation. Medical Decision Making - Medical Records Medical records reviewed: Yes: I reviewed the patient's medical records. - Braxton Inquiry Pt receiving controlled substance: No Vital Signs: 06/12/21 21:23 06/12/21 22:00 06/12/21 23:00 Temperature 98.5 F Temperature Source Oral Pulse Rate 79 85 Pulse Rate [Right Radial] 111 H Respiratory Rate 18 18 Blood Pressure 132/84 131/84 Blood Pressure [Right Arm] 156/101 H Blood Pressure Mean [Right Arm] 119 Blood Pressure Source Automatic Cuff Automatic Cuff Blood Pressure Source [Right Arm] Automatic Cuff Blood Pressure Position Sitting Sitting Blood Pressure Position [Right Arm] Supine 02 Sat by Pulse Oximetry 96 96 98 Oxygen Delivery Method Room Air Room Air Room Air - Lab Data Lab results reviewed: Yes: I reviewed the patient's lab results. Lab Results 06/12/21 22:22: Urine Color Yellow, Urine Appearance Sl cloudy, Urine pH 6.0, Ur Specific Greer 1.025, Urine Protein Negative, Urine Glucose (UA) 3+, Urine Ketones Trace, Urine Blood 3+, Urine Nitrate Negative, Urine Bilirubin Negative, Urine Urobilinogen 0.2, Ur Leukocyte Esterase Negative, Urine RBC 50-100, Urine WBC 3-5, Ur Squamous Epith Cells Occasional, Urine Bacteria Trace 06/12/21 22:22: Urine HCG, Qual Negative 06/12/21 22:32: WBC 10.7, RBC 5.24, Hgb 15.4, Hct 45.4, MCV 86.7, MCH 29.5, MCHC 34.0, RDW 13.0, Plt Count 205, MPV 9.8, Neut % (Auto) 51.4, Lymph % (Auto) 43.2, Pleasants % (Auto) 2.8, Eos % (Auto) 1.8, Baso % (Auto) 0.8, Neut # (Auto) 5.5, Lymph # (Auto) 4.6 H, Pleasants # (Auto) 0.3, Eos # (Auto) 0.2, Baso # (Auto) 0.1, ESR 17 06/12/21 22:32: Sodium 133 L, Potassium 4.0, Chloride 95 L, Carbon Dioxide 24, Anion Gap 18.0 H, BUN 11, Creatinine 0.40 L, Estimated Creat Clear 287, Estimated GFR 191, Est GFR ( Amer) 232, Glucose 346 H, Calcium 9.4, Total Bilirubin 0.8, AST 48 H, ALT 71, Alkaline Phosphatase 99, C-Reactive Protein 15.0 H, Total Protein 8.0, Albumin 4.3, Globulin 3.7 H, Albumin/Globulin Ratio 1.2, Amylase 50, Lipase 178, Procalcitonin 0.075 06/12/21 22:32: Hemoglobin A1c > 14.0 H 06/12/21 22:32: Acetone Level None detected Result diagrams: 06/12/21 22:32 06/12/21 22:32 Orders (Tests/Meds): ED MEDICATIONS Generic Name Dose Route Start Last Admin Trade Name Freq PRN Reason Stop Dose Admin Lactated Ringer's 1,000 mls @ 999 mls/hr 06/12/21 22:30 06/12/21 22:50 Lactated Ringer's 1000 Ml Bag IV 06/12/21 23:30 999 mls/hr .Q1H1M NORMA Administration Sodium Chloride 8 ml 06/12/21 22:27 Sodium Chloride 0.9% 10ml Vial IV 07/12/21 22:26 NEEDED PRN dilute pepcid Discontinued Medications Generic Name Dose Route Start Last Admin Trade Name Freq PRN Reason Stop Dose Admin Famotidine 20 mg 06/12/21 22:27 06/12/21 22:51 Famotidine 20mg/2ml
[2021-06-13 02:02] LABS: Acetone, Serum (Rapid) None Detected (None Detect)
[2021-06-13 02:24] LABS: Hemoglobin A1C > 14.0 % (4.0-6.0)
[2021-06-13 02:40] VITALS: BP 128/76; PULSE 88; RESP 18; TEMP 36.7; O2SAT 98
== END 2021-06-13 02:44 | disposition home or self-care (01) ==
PROVIDERS: Emergency Provider Emergency Medicine; PCP Nurse Practitioner Family
DX: E11.65 Type 2 diabetes mellitus with hyperglycemia (principal); R10.11 Right upper quadrant pain
CPT/HCPCS: 74177; 80053; 81001; 81025; 82009; 82150; 83036; 83690; 84145; 85025; 85651; 86140; 96365; 96375; 99283; J2405; Q9967

== ENCOUNTER 2021-09-13 20:13 | Emergency (ER) | payer BC, SELFPAY ==
[2021-09-13 20:45] VITALS: BP 151/91; PULSE 89; RESP 19; TEMP 36.9; O2SAT 97; BMI 31.4
[2021-09-13 21:14] LABS: UTC Strep Screen (Rapid) Negative (Negative)
[2021-09-13 21:15] LABS: UTC Influenza A Antigen Negative (Negative); UTC Influenza B Antigen Negative (Negative)
--- NOTE | 2021-09-13 21:24 | HMH.EDUTC ---
[facility] [place] Disposition Clinical Impression: Viral syndrome Disposition: Xfer Disaster [facility] Care Site Condition on Discharge: Good Instructions: DI for Viral Syndrome, Cough (Alternative Therapy) Additional Instructions: *Monitor Temp, Over the counter Motrin or Tylenol as directed/as needed Tylenol every 4 hours and Motrin every 6 hours (as long as your family doctor has told you that you can take it) for fever or pain. and straight to ER if unable to lower temp less than 101.0 after medication given *Warm salt water gargles may help to soothe the throat *Throat Lozenges *Warm fluids like tea with honey may help to soothe the throat *Sleep elevated *Humidifier/Vaporizer *Flonase 2 sprays in each nostril daily but be aware that it may take 2-3 days before you notice improvement *Bromfed may cause drowsiness. Know how it effects you (your child) before driving, caring for small child, or sending your child to school. Not other antihistamines/allergy medications while taking bromfed Your throat swab was sent for culture. Those results are typically sent to your primary care. Be sure to follow up in 2-3 days with your family doctor/primary care physician if no improvement so they can review those result and treat if necessary. If you don?t have a primary care doctor, I recommend you get one but in the mean time, you will have to return to a walk in clinic Follow up IMMEDIATELY for new or worsening symptoms or no Noticeable improvement over the next 48-72 hours. 911 for difficulty breathing or swallowing Prescriptions: Brompheniramine/Pseudoephed/Dm [Bromfed Dm Cough Syrup] 5 - 10 ml PO Q46H PRN #200 ml PRN Reason: Cough Transmission Status: Pending to [facility] Fluticasone Propionate [Flonase 50mcg nasal spray 16gm] 1 spr NS DAILY #1 each Transmission Status: Pending to [facility] Referrals: Lashaun Krause APRN [Primary Care Provider] - As needed Time of Disposition: 21:28 Medical Decision Making - Braxton Inquiry Pt receiving controlled substance: No Braxton was queried for this patient: No Vital Signs: 09/13/21 20:45 Temperature 98.5 F Temperature Source Oral Pulse Rate [Right Brachial] 89 Respiratory Rate 19 Blood Pressure [Right Arm] 151/91 H Blood Pressure Mean [Right Arm] 111 Blood Pressure Source [Right Arm] Automatic Cuff Blood Pressure Position [Right Arm] Sitting 02 Sat by Pulse Oximetry 97 Oxygen Delivery Method Room Air - Lab Data Lab Results 09/13/21 21:02: Influenza Type A Ag Negative, Influenza Type B Ag Negative 09/13/21 21:02: Strep Scn Rapid Clinic Negative Orders (Tests/Meds): ORDERS Category Date Time Status Strep Screen Confirmation Stat Micro 09/13/21 21:02 Received [facility] [place] HPI - General Stated complaint: sore throat congestion L ear pain Time Seen by Provider: 09/13/21 21:24 Mode of Arrival: Ambulatory Source of Information: Patient Limitations: No Limitations Description of Symptoms (Recalled from Triage Doc. by RN): PATIENT C/O SORE THROAT, CONGESTION, AND LEFT EAR PAIN X 2 DAYS HEENT Symptoms (Recalled from RN notes): Yes Resp Symptoms (Recalled from RN notes): No Skin Symptoms (Recalled from RN notes): No MS Symptoms (Recalled from RN notes): No Functional Status (Recalled from RN notes): WNL - History of Present Illness Provider Complaint: Patient states that she has been having sore throat, pain in her left ear and cough for several days States that tonight she was still feeling bad and her step daughter was having similar symptoms so they come in ot get checked - Related Data Home Medications Medication Instructions Recorded Confirmed Propranolol HCl [Propranolol HCl 80 mg PO DAILY 06/12/21 09/13/21 ER] Venlafaxine HCl [Effexor XR 75mg 75 mg PO DAILY 06/12/21 09/13/21 capsule] Previous Rx's Medication Instructions Recorded Brompheniramine/Pseudoephed/Dm 5 - 10 ml PO Q46H PRN #200 ml 09/13/21 [Bromfed Dm
[2021-09-13 21:35] VITALS: BP 151/91; PULSE 89; RESP 19; TEMP 36.9; O2SAT 97
== END 2021-09-13 21:42 | disposition home or self-care (01) ==
PROVIDERS: Emergency Provider Nurse Practitioner; PCP Nurse Practitioner Family
DX: B34.9 Viral infection, unspecified (principal); H92.02 Otalgia, left ear; J02.9 Acute pharyngitis, unspecified
CPT/HCPCS: 87804; 87880; 99203; G0463

== ENCOUNTER 2021-10-15 09:48 | Emergency (ER) | payer BC, SELFPAY ==
[2021-10-15 11:21] VITALS: BP 0/0; PULSE 0; RESP 0; TEMP -17.7; TEMP 0
== END 2021-10-15 11:22 | disposition left against medical advice (07) ==
PROVIDERS: Emergency Provider Nurse Practitioner Family; PCP Nurse Practitioner Family
DX: Z53.21 Procedure and treatment not carried out due to patient leaving prior to being seen by health care provider (principal)

== ENCOUNTER → 2021-10-16 13:11 | Outpatient (CLI) | payer BC, SELFPAY | PROVIDERS: Visit Provider Nurse Practitioner | DX: U07.1 COVID-19 (principal) | CPT/HCPCS: C9803; U0003; U0005 ==

== ENCOUNTER 2021-10-23 15:39 | Emergency (ER) | payer BC, SELFPAY ==
--- NOTE | 2021-10-23 18:27 | HMH.EDUTC ---
[facility] [place] Disposition Clinical Impression: COVID-19, Viral syndrome, Bronchitis Disposition: Home, Self-Care Condition on Discharge: Good Instructions: DI for COVID-19 (Suspected or Confirmed ), Preventing the Spread of Coronavirus Discharge Instructions Additional Instructions: Drink plenty of fluids. Take tylenol or ibuprofen for pain or fever. Take the medications as directed. Follow up with your regular doctor. GO TO THE ER FOR ANY WORSENING SYMPTOMS The cough medication (promethazine dm) will make you drowsy, so don't drive or operate heavy machinery after taking it. Prescriptions: Promethazine/Dextromethorphan [Promethazine-Dm Syrup] 5 ml PO Q6HP PRN #240 ml PRN Reason: Cough Transmission Status[email or web address] Ondansetron [Zofran 4mg ODT] 4 mg PO Q8HP PRN #20 tab PRN Reason: Nausea Transmission Status: [email or web address] methylPREDNISolone [Medrol] 4 mg PO DIRECTED 6 Days #21 packet Transmission Status: Received by [facility] Azithromycin [Z-Jose Guadalupe 250mg Tab*] 250 mg PO UD DOSE PK #6 tab Transmission Status[email or web address] Referrals: Lashaun Krause APRN [Primary Care Provider] - Forms: Work/School Release Time of Disposition: 19:19 Medical Decision Making - Medical Records Medical records reviewed: No: I reviewed the patient's medical records. - Braxton Inquiry Pt receiving controlled substance: No Vital Signs: 10/23/21 18:36 Temperature 99.3 F Temperature Source Oral Pulse Rate [Left] 105 H Respiratory Rate 18 Blood Pressure [Right Arm] 143/94 H Blood Pressure Mean [Right Arm] 110 02 Sat by Pulse Oximetry 96 - Lab Data Lab results reviewed: Yes: I reviewed the patient's lab results. Lab Results 10/23/21 19:37: Influenza Type A Ag Negative, Influenza Type B Ag Negative [facility] [place] HPI - General Stated complaint: covid positive symptoms worsening Time Seen by Provider: 10/23/21 18:27 - History of Present Illness Provider Complaint: She was diagnosed with covid-19 on 10/16. She is here today because she has been progressivly feeling worse instead of better. She has shortness of breath any time she has to walk very far or exert herself. She is having nausea and diarrhea. She has body aches and sore throat also. She is fully vaccinated against covid-19. She works in a senior living. - Related Data Home Medications Medication Instructions Recorded Confirmed Propranolol HCl [Propranolol HCl 80 mg PO DAILY 06/12/21 09/13/21 ER] Venlafaxine HCl [Effexor XR 75mg 75 mg PO DAILY 06/12/21 09/13/21 capsule] Previous Rx's Medication Instructions Recorded Brompheniramine/Pseudoephed/Dm 5 - 10 ml PO Q46H PRN #200 ml 09/13/21 [Bromfed Dm Cough Syrup] Fluticasone Propionate [Flonase 1 spr NS DAILY #1 each 09/13/21 50mcg nasal spray 16gm] Azithromycin [Z-Jose Guadalupe 250mg Tab*] 250 mg PO UD DOSE PK #6 tab 10/23/21 Ondansetron [Zofran 4mg ODT] 4 mg PO Q8HP PRN #20 tab 10/23/21 Promethazine/Dextromethorphan 5 ml PO Q6HP PRN #240 ml 10/23/21 [Promethazine-Dm Syrup] methylPREDNISolone [Medrol] 4 mg PO DIRECTED 6 Days #21 10/23/21 packet Allergies Allergy/AdvReac Type Severity Reaction Status Date / Time No Known Allergies Allergy Verified 06/07/21 17:29 [facility] History - Hepatitis A Screen Attestation statement:: This patient has been screened for Hepatitis A risk factors. I have reviewed the patient's past medical history: Yes Medical History: Denies:: Cancer, Diabetes Mellitus Type 1, Diabetes Mellitus Type 2, Internal Pacemaker, MRSA, Seizures Other Medical History: Denies: Blood Transfusion Reaction Other Surgeries: No: Pacemaker Amputation: No Fractures: No - Social History Smoking Status: Never smoker Alcohol Intake: never Substance Use Type: denies use Occupational Status: employed Housing: house Household Members: spouse Family Hx:: Coronary Art
[2021-10-23 18:36] VITALS: BP 143/94; PULSE 105; RESP 18; TEMP 37.4; O2SAT 96; BMI 31.6
--- NOTE | 2021-10-23 18:37 | XR_ITS ---
PROCEDURE INFORMATION: Exam: XR Chest Exam date and time: 10/23/2021 6:37 PM Age: 26 years old Clinical indication: Shortness of breath; Additional info: Cough, congestion, covid positive TECHNIQUE: Imaging protocol: XR of the chest. Views: 2 views. COMPARISON: CR XR CHEST PORTABLE 05/31/2019 8:40 AM FINDINGS: Lungs: Multifocal peripheral parenchymal and airspace opacities without large consolidation or pleural effusion. Pleural spaces: See Lungs finding. Heart/Mediastinum: Unremarkable. No cardiomegaly. Bones/joints: Unremarkable. IMPRESSION: Multifocal peripheral parenchymal and airspace opacities without large consolidation or pleural effusion.
[2021-10-23 19:38] LABS: UTC Influenza A Antigen Negative (Negative); UTC Influenza B Antigen Negative (Negative)
[2021-10-23 19:56] VITALS: BP 143/94; PULSE 105; RESP 18; TEMP 37.4
== END 2021-10-23 19:59 | disposition home or self-care (01) ==
PROVIDERS: Emergency Provider Nurse Practitioner Family; PCP Nurse Practitioner Family
DX: U07.1 COVID-19 (principal)
CPT/HCPCS: 71046; 87804; 99202; G0463

== ENCOUNTER 2022-03-13 23:06 | Emergency (ER) | payer BC, SELFPAY ==
[2022-03-13 23:06] VITALS: BP 135/88; PULSE 116; RESP 18; TEMP 36.8; O2SAT 97; BMI 29.7
--- NOTE | 2022-03-13 23:23 | CT_ITS ---
PROCEDURE INFORMATION: Exam: CT Abdomen And Pelvis Without Contrast Exam date and time: 03/13/2022 11:49 PM Age: 26 years old Clinical indication: Abdominal pain; Generalized; Patient HX: Rlq pain, h/o lt ovarian cyst removal; Additional info: Abd pain TECHNIQUE: Imaging protocol: Computed tomography of the abdomen and pelvis without contrast. Radiation optimization: All CT scans at this facility use at least one of these dose optimization techniques: automated exposure control; mA and/or kV adjustment per patient size (includes targeted exams where dose is matched to clinical indication); or iterative reconstruction. COMPARISON: CT ABDOMEN PELVIS W CON 06/12/2021 11:01 PM FINDINGS: Liver: Fatty liver and hepatomegaly. Gallbladder and bile ducts: Normal. No calcified stones. No ductal dilation. Pancreas: Normal. No ductal dilation. Spleen: Normal. No splenomegaly. Adrenal glands: Normal. No mass. Kidneys and ureters: Normal. No hydronephrosis. Stomach and bowel: Unremarkable. No obstruction. No mucosal thickening. Appendix: No evidence of appendicitis. Intraperitoneal space: Unremarkable. No free air. No significant fluid collection. Vasculature: Unremarkable. No abdominal aortic aneurysm. Lymph nodes: Unremarkable. No enlarged lymph nodes. Urinary bladder: Unremarkable as visualized. Reproductive: Unremarkable as visualized. Bones/joints: Unremarkable. No acute fracture. Soft tissues: Unremarkable. IMPRESSION: No acute findings.
[2022-03-13 23:35] LABS: Microscopic, Urine URINE MICROSCOPIC (MICROSCOPIC)
[2022-03-13 23:37] LABS: Appearance,Urine CLEAR (Clear); Bilirubin,Urine Negative (Negative); Blood, Urine 2+ (Negative); Color,Urine YELLOW (Yellow); Glucose,Urine (UA) 3+ (Negative); Ketones,Urine TRACE (Negative); Leukocyte Esterase,Urine Negative (Negative); Nitrate,Urine Negative (Negative); PH,Urine 5.5 (5.0-8.5); Protein,Urine Negative (Negative); Urobilinogen,Urine 0.2 EU/dl (0.2)
[2022-03-13 23:41] LABS: Urine Pregnancy, HCG Qual. Negative (Negative)
[2022-03-13 23:42] LABS: Basophils # 0.2 K/mm3 (0-0.2); Basophils % 1.6 % (0.1-2.0); Eosinophils # 0.1 K/mm3 (0.0-0.4); Eosinophils % 1.1 % (0.1-12.0); Hematocrit 43.9 % (37.0-47.0); Hemoglobin 14.7 g/dL (12.2-16.2); Lymphocytes # 4.1 K/mm3 (0.7-4.5); Lymphocytes % 33.1 % (10-50); Mean Corpuscular HGB Conc 33.5 g/dL (31.8-35.4); Mean Corpuscular Hemoglobin 28.8 pg (27.0-31.2); Mean Corpuscular Volume 86.1 fl (81-99); Mean Platelet Volume 9.5 fl (7.4-10.4); Monocytes # 0.4 K/mm3 (0.1-1.0); Monocytes % 3.4 % (1.7-9.3); Neutrophils # 7.5 K/mm3 (1.8-7.8); Neutrophils % 60.7 % (37.0-80.0); Platelet Count 307 K/mm3 (142-424); Red Cell Distribution Width 13.9 % (11.5-17.5); White Blood Count 12.3 K/mm3 (4.8-10.8)
[2022-03-13 23:51] LABS: Alanine Aminotransferase 52 U/L (12-78); Albumin Level 4.5 g/dl (3.5-5.0); Albumin/Globulin Ratio 1.5 (1.1-1.8); Alkaline Phosphatase 88 U/L (38-126); Amylase 42 U/L (30-110); Anion Gap 21.1 mEq/L (5-15); Aspartate Amino Transferase 41 U/L (14-36); Bilirubin,Total 0.9 mg/dl (0.2-1.3); Blood Urea Nitrogen 12 mg/dl (7-17); Calcium 9.6 mg/dl (8.4-10.2); Carbon Dioxide 20 mmol/L (22.0-30.0); Chloride 96 mmol/L (98-107); Creatinine Clearance Estimated 215 mL/min (50-200); Estimated Glomerular Filt Rate 147 ml/min (>60); GFR (African American) 178 ML/MIN (>60); Globulin 3.1 g/dL (1.3-3.2); Glucose 364 mg/dl (74-100); Lipase 45 U/L (23-300); Potassium 4.1 mmoL/L (3.5-5.1); Sodium 133 mmol/L (136-145); Total Protein,Serum 7.6 g/dl (6.3-8.2)
[2022-03-13 23:56] LABS: C-Reactive Protein 33.7 mg/L (0-4)
[2022-03-13 23:57] LABS: Bacteria,Urine 2+ /lpf; RBC,Urine 20-50 #/hpf (0-3)
[2022-03-14 00:06] VITALS: BP 119/72; PULSE 100; O2SAT 94
[2022-03-14 00:10] LABS: Procalcitonin 0.059 ng/mL (0.0-2.0)
[2022-03-14 00:12] LABS: Erythrocyte Sedimentation Rate 13 mm/hr (0-20)
[2022-03-14 00:39] VITALS: BP 131/85; PULSE 92; O2SAT 97
[2022-03-14 01:00] VITALS: BP 128/75; PULSE 92; O2SAT 98
--- NOTE | 2022-03-14 01:19 | HMH.EDNVD ---
ED Disposition Clinical Impression: Abdominal pain Qualifiers: Abdominal location: right upper quadrant Qualified Code(s): R10.11 - Right upper quadrant pain Disposition: Home, Self-Care Condition on Discharge: Good Instructions: DI for Acute Abdominal Pain Additional Instructions: fluids and see pcp for follow up Referrals: Provider,Referral, [Primary Care Provider] - - Critical Care Critical Care Time: No Attestation: On 03/13/22, the high probability of a clinically significant, sudden or life threatening deterioration of the following system(s) required my full and direct attention, intervention and personal management. The time I documented below is in addition to time spent performing reported procedures but includes the following listed in this critical care notation. Medical Decision Making - Medical Records Medical records reviewed: Yes: I reviewed the patient's medical records. - Braxton Inquiry Pt receiving controlled substance: No Vital Signs: 03/13/22 23:06 03/14/22 00:06 03/14/22 00:39 Temperature 98.2 F Temperature Source Oral Pulse Rate 100 H 92 H Pulse Rate [Right] 116 H Respiratory Rate 18 Blood Pressure 119/72 131/85 Blood Pressure [Right Arm] 135/88 Blood Pressure Mean 100 Blood Pressure Mean [Right Arm] 103 02 Sat by Pulse Oximetry 97 94 L 97 Oxygen Delivery Method Room Air Room Air 03/14/22 01:00 Temperature Temperature Source Pulse Rate 92 H Pulse Rate [Right] Respiratory Rate Blood Pressure 128/75 Blood Pressure [Right Arm] Blood Pressure Mean Blood Pressure Mean [Right Arm] 02 Sat by Pulse Oximetry 98 Oxygen Delivery Method Room Air - Lab Data Lab results reviewed: Yes: I reviewed the patient's lab results. Lab Results 03/13/22 23:16: Urine Color Yellow, Urine Appearance Clear, Urine pH 5.5, Ur Specific Lane 1.020, Urine Protein Negative, Urine Glucose (UA) 3+, Urine Ketones Trace, Urine Blood 2+, Urine Nitrate Negative, Urine Bilirubin Negative, Urine Urobilinogen 0.2, Ur Leukocyte Esterase Negative, Urine RBC 20-50, Urine WBC 5-10, Ur Squamous Epith Cells 5-10, Urine Bacteria 2+ 03/13/22 23:16: Urine HCG, Qual Negative 03/13/22 23:34: WBC 12.3 H, RBC 5.10, Hgb 14.7, Hct 43.9, MCV 86.1, MCH 28.8, MCHC 33.5, RDW 13.9, Plt Count 307, MPV 9.5, Neut % (Auto) 60.7, Lymph % (Auto) 33.1, [place] % (Auto) 3.4, Eos % (Auto) 1.1, Baso % (Auto) 1.6, Neut # (Auto) 7.5, Lymph # (Auto) 4.1, [place] # (Auto) 0.4, Eos # (Auto) 0.1, Baso # (Auto) 0.2, ESR 13 03/13/22 23:34: Sodium 133 L, Potassium 4.1, Chloride 96 L, Carbon Dioxide 20 L, Anion Gap 21.1 H, BUN 12, Creatinine 0.50 L, Estimated Creat Clear 215, Estimated GFR 147, Est GFR ( Amer) 178, Glucose 364 H, Calcium 9.6, Total Bilirubin 0.9, AST 41 H, ALT 52, Alkaline Phosphatase 88, C-Reactive Protein 33.7 H, Total Protein 7.6, Albumin 4.5, Globulin 3.1, Albumin/Globulin Ratio 1.5, Amylase 42, Lipase 45, Procalcitonin 0.059 03/13/22 23:34: Acetone Level None detected Result diagrams: 03/13/22 23:34 03/13/22 23:34 Orders (Tests/Meds): ED MEDICATIONS Generic Name Dose Route Start Last Admin Trade Name Freq PRN Reason Stop Dose Admin Sodium Chloride 1,000 mls @ 999 mls/hr 03/13/22 23:30 03/13/22 23:44 Sod Chlor 0.9% 1000ml Bag IV 03/14/22 00:30 999 mls/hr .Q1H1M NORMA Administration Discontinued Medications Generic Name Dose Route Start Last Admin Trade Name Freq PRN Reason Stop Dose Admin Ketorolac Tromethamine 30 mg 03/13/22 23:23 03/13/22 23:44 Ketorolac 30mg/Ml Vial IV 03/13/22 23:24 30 mg ONCE ONE Administration Ondansetron HCl 4 mg 03/13/22 23:23 03/13/22 23:44 Ondansetron 4mg/2ml Vial IV 03/13/22 23:24 4 mg ONCE ONE Administration ORDERS Category Date Time Status Hemoglobin A1C Stat Lab 03/14/22 01:24 Ordered Urine Culture Stat Micro 03/13/22 23:16 Received - CT Data CT Scan: Abdomen, Pelvis Time Received: 01:[address] Reviewed
[2022-03-14 02:00] LABS: Acetone, Serum (Rapid) None Detected (None Detect)
[2022-03-14 02:11] VITALS: BP 124/72; PULSE 87; RESP 18; TEMP 36.8; O2SAT 98
[2022-03-14 02:51] LABS: Hemoglobin A1C 11.7 % (4.0-6.0)
== END 2022-03-14 02:13 | disposition home or self-care (01) ==
PROVIDERS: Emergency Provider Emergency Medicine
DX: R10.31 Right lower quadrant pain (principal); R10.11 Right upper quadrant pain; A49.8 Other bacterial infections of unspecified site; R11.0 Nausea; Z79.51 Long term (current) use of inhaled steroids; Z79.52 Long term (current) use of systemic steroids; Z79.899 Other long term (current) drug therapy; Z82.49 Family history of ischemic heart disease and other diseases of the circulatory system; Z83.438 Family history of other disorder of lipoprotein metabolism and other lipidemia; Z84.1 Family history of disorders of kidney and ureter; Z83.3 Family history of diabetes mellitus
CPT/HCPCS: 74176; 80053; 81001; 81025; 82009; 82150; 83036; 83690; 84145; 85025; 85651; 86140; 87086; 87088; 87186; 96361; 96374; 96375; 99285; J2405

== ENCOUNTER 2022-11-29 04:34 | Emergency (ER) | payer BC, SELFPAY ==
[2022-11-29 04:37] VITALS: BP 146/91; PULSE 122; RESP 20; TEMP 36.7; O2SAT 98; BMI 29.9
--- NOTE | 2022-11-29 04:55 | XR_ITS ---
PROCEDURE INFORMATION: Exam: XR Chest Exam date and time: 11/29/2022 4:57 AM Age: 27 years old Clinical indication: Cough TECHNIQUE: Imaging protocol: Radiologic exam of the chest. Views: 2 views. COMPARISON: CR XR CHEST 2V 10/23/2021 6:44 PM FINDINGS: Lungs: Unremarkable. No consolidation. Pleural spaces: Unremarkable. No pleural effusion. No pneumothorax. Heart/Mediastinum: Unremarkable. No cardiomegaly. Bones/joints: Unremarkable. IMPRESSION: No acute findings.
[2022-11-29 05:03] LABS: Coronavirus 19, PCR Not Detected (NotDetected); Influenza A, PCR Not Detected (NotDetected); Influenza B, PCR Not Detected (NotDetected)
[2022-11-29 05:14] LABS: Strep Scrn Group A (Rapid) Positive (Negative)
[2022-11-29 06:01] VITALS: BP 128/75; PULSE 117; O2SAT 97
[2022-11-29 06:04] LABS: Basophils # 0.2 K/mm3 (0-0.2); Basophils % 1.1 % (0.1-2.0); Eosinophils # 0.2 K/mm3 (0.0-0.4); Eosinophils % 1.2 % (0.1-12.0); Hematocrit 44.2 % (37.0-47.0); Hemoglobin 14.6 g/dL (12.2-16.2); Lymphocytes # 3.8 K/mm3 (0.7-4.5); Lymphocytes % 21.3 % (10-50); Mean Corpuscular HGB Conc 33.1 g/dL (31.8-35.4); Mean Corpuscular Hemoglobin 28.1 pg (27.0-31.2); Mean Corpuscular Volume 84.9 fl (81-99); Mean Platelet Volume 10.8 fl (7.4-10.4); Monocytes # 0.7 K/mm3 (0.1-1.0); Monocytes % 3.9 % (1.7-9.3); Neutrophils % 72.5 % (37.0-80.0); Platelet Count 301 K/mm3 (142-424); Red Cell Distribution Width 13.6 % (11.5-17.5); White Blood Count 17.9 K/mm3 (4.8-10.8)
[2022-11-29 06:05] LABS: MANUAL DIFFERENTIAL MANUAL DIFFERENTIAL (MANUAL DIFF)
[2022-11-29 06:07] LABS: Alanine Aminotransferase 46 U/L (12-78); Albumin Level 4.8 g/dl (3.5-5.0); Albumin/Globulin Ratio 1.5 (1.1-1.8); Alkaline Phosphatase 87 U/L (38-126); Anion Gap 15.5 mEq/L (5-15); Aspartate Amino Transferase 31 U/L (14-36); Bilirubin,Total 0.9 mg/dl (0.2-1.3); Blood Urea Nitrogen 11 mg/dl (7-17); Calcium 9.2 mg/dl (8.4-10.2); Carbon Dioxide 23 mmol/L (22.0-30.0); Chloride 101 mmol/L (98-107); Creatinine Clearance Estimated 267 mL/min (50-200); Estimated Glomerular Filt Rate 189 ml/min (>60); GFR (African American) 228 ML/MIN (>60); Globulin 3.3 g/dL (1.3-3.2); Glucose 242 mg/dl (74-100); Potassium 3.5 mmoL/L (3.5-5.1); Sodium 136 mmol/L (136-145); Total Protein,Serum 8.1 g/dl (6.3-8.2)
[2022-11-29 06:30] VITALS: BP 126/80; PULSE 108; O2SAT 97
--- NOTE | 2022-11-29 06:37 | HMH.EDGENADL ---
Discharge Plan Disposition Patient Disposition: Home, Self-Care Prescriptions Prescriptions: New cephalexin [cephalexin] 500 mg capsule 500 mg PO TID Qty: 21 0RF No Action fluticasone propionate 120 SPR/BOT bottle 1 spr NS DAILY Qty: 1 0RF Rx Instructions: one spray in each nostril daily ondansetron 4 MG tablet,disintegrating 4 mg PO Q8HP PRN (Reason: Nausea) Qty: 20 0RF venlafaxine 75 MG capsule,extended release 24hr 75 mg PO DAILY propranolol 80 MG capsule,extended release 24 hr 80 mg PO DAILY Label Comments: TAKE 1 CAPSULE BY MOUTH ONCE DAILY Referrals Follow up/Referrals: Provider,Referral, MD [Primary Care Provider] - See instructions Clinical Impressions Clinical Impression: Strep sore throat, Diabetes mellitus Discharge ED Provider: Gloria (ED)Mika General Adult HPI General Chief complaint: PAIN Stated complaint: Sore throat,ears hurt,nausea Time Seen by Provider: 11/29/22 06:37 Mode of Arrival: Family Vehicle Source of Information: Patient Limitations: No Limitations Description of Symptoms (Recalled from ER Triage Doc. by RN): Pt c/o cough, sore throat, and nausea. States that her children are positive for strep throat. 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 Denies fever or chills. Denies vomiting or diarrhea. Denies ABD pain. History of Present Illness HPI narrative: sore throat and cough with hx of exposure to strep and has hx of diabetes - no rash Onset (ago): day(s) Severity: moderate Associated symptoms: denies other symptoms Related Data Home Medications Medication Instructions Recorded Confirmed propranolol 80 mg capsule,24 80 mg PO DAILY Hypertension 06/12/21 09/13/21 hr,extended release venlafaxine 75 mg capsule,extended 75 mg PO DAILY Anxiety 06/12/21 09/13/21 release 24 hr Previous Rx's Medication Instructions Recorded fluticasone propionate 50 1 spr NS DAILY #1 ea 09/13/21 mcg/actuation nasal spray,suspension ondansetron 4 mg disintegrating 4 mg PO Q8HP PRN Nausea #20 tabs 10/23/21 tablet cephalexin 500 mg capsule 500 mg PO TID #21 caps 11/29/22 Allergies Allergy/AdvReac Type Severity Reaction Status Date / Time No Known Allergies Allergy Verified 06/07/21 17:29 PFSH PFSH Disclaimer: The information contained in this section may have been updated after the patient was seen, as this information can be updated by other users. Social History Smoking Status: Never smoker alcohol intake: never substance use type: denies use current occupational status: employed Travel in the last 8 weeks: None household members: spouse housing: house current occupation: [employer] current occupational exposures/hazards: No caffeine: Yes ROS Obtained: Yes All systems reviewed & no additional complaints except as documented Physical Exam General General appearance: alert Head Head exam: normocephalic Eye Eye exam: Present PERRL and EOMI ENT ENT exam: Present mucous membranes moist Expanded ENT Exam Throat exam: Present tonsillar erythema; Absent muffled voice Neck Neck exam: Present trachea midline Respiratory Respiratory exam: Absent respiratory distress Cardiovascular Cardiovascular exam: Present regular rate Abdominal Exam Abdominal exam: Present soft Extremities Exam Extremities exam: Present full ROM Neurological Exam Neurological exam: Present alert, oriented X3 and CN II-XII intact Psychiatric Psychiatric exam: Present normal affect Skin Skin exam: Absent rash Medical Decision Making Medical Records Medical records reviewed: Yes I reviewed the patient's medical records. Braxton Inquiry Pt receiving controlled substance: No Vital Signs: 11/29/22 04:37 11/29/22 06:01 11/29/22 06:30 Temperature 98.1 F Temperature Source Oral Pulse Rate 117 H 108 H Pulse Rate [Right] 122 H Respiratory Rate 20 Blood Pressure 128/75 126/80 Blood Pressu
[2022-11-29 06:51] LABS: Acetone, Serum (Rapid) None Detected (None Detect)
[2022-11-29 07:06] VITALS: BP 125/78; PULSE 100; RESP 18; TEMP 36.6; O2SAT 99
[2022-11-29 07:53] LABS: Lymphocytes % 8 % (10-50); Monocytes % 3 % (2-9); Neutrophils % 89 % (42-76); Platelet Estimate Normal; RBC Morphology Normal; Total Cells Counted 100
== END 2022-11-29 07:13 | disposition home or self-care (01) ==
PROVIDERS: Emergency Provider Emergency Medicine
DX: J02.0 Streptococcal pharyngitis (principal); H92.09 Otalgia, unspecified ear; R11.0 Nausea; Z83.3 Family history of diabetes mellitus
CPT/HCPCS: 71046; 80053; 82009; 85007; 85025; 87430; 96361; 96374; 96375; 99285; C9803; J0696; U0003; U0005

== ENCOUNTER 2023-12-21 19:44 | Emergency (ER) | payer BC, SELFPAY ==
[2023-12-21 19:44] VITALS: BP 128/84; PULSE 94; RESP 14; TEMP 36.5; O2SAT 98; BMI 31.6
--- NOTE | 2023-12-21 19:57 | XR_ITS ---
PROCEDURE INFORMATION: Exam: XR Chest Exam date and time: 12/21/2023 8:16 PM Age: 28 years old Clinical indication: Other: Syncope TECHNIQUE: Imaging protocol: Radiologic exam of the chest. Views: 1 view. COMPARISON: CR XR CHEST 2V 11/29/2022 4:57 AM FINDINGS: Lungs: No evidence of acute pulmonary disease or infiltrates Pleural spaces: No large effusion or pneumothorax. Heart/Mediastinum: No evidence of mediastinal widening or cardiac silhouette enlargement; the mediastinum and heart appear within normal limits for contour and size. Bones/joints: No evidence of acute osseous abnormalities within the visualized portions of the thoracic spine and ribs. Osseous structures appear appropriate for patient age. IMPRESSION: No dense parenchymal consolidation, pleural effusion, or pneumothorax.
--- NOTE | 2023-12-21 19:59 | ED_ITS ---
Discharge Plan Disposition Patient Disposition: Home, Self-Care Prescriptions Prescriptions: New promethazine 25 mg tablet 25 mg PO TID PRN (Reason: nausea and vomiting) Qty: 12 0RF No Action fluticasone propionate 120 SPR/BOT bottle 1 spr NS DAILY Qty: 1 0RF Rx Instructions: one spray in each nostril daily ondansetron 4 MG tablet,disintegrating 4 mg PO Q8HP PRN (Reason: Nausea) Qty: 20 0RF cephalexin [cephalexin] 500 mg capsule 500 mg PO TID Qty: 21 0RF venlafaxine 75 MG capsule,extended release 24hr 75 mg PO DAILY propranolol 80 MG capsule,extended release 24 hr 80 mg PO DAILY Patient Comments: TAKE 1 CAPSULE BY MOUTH ONCE DAILY Referrals Follow up/Referrals: Saurav Madera MD [Staff Physician] - See instructions (Sinus tach despite fluids, one episode of syncope) Provider,MD Paulina [Primary Care Provider] - See instructions Activity Restrictions/Add. Instructions Additional Instructions/Restrictions: You were evaluated in the ER. You are appropriate for discharge at this time. Follow-up with cardiology when they contact you for an appointment since your heart rate continued to be elevated in the ER despite otherwise reassuring workup. Also make an appointment with your primary care physician for reevaluation in 2 to 3 days. Continue taking any home medications as previously prescribed. Drink plenty of water. Return to the ER with any new, worsening, or otherwise concerning symptoms. Clinical Impressions Clinical Impression: Syncope, Nausea, Tachycardia Instructions Patient Instructions: DI for Syncope in Adults (Fainting), DI for Syncope in Children (Fainting) Discharge ED Provider: Stacey Castellano General Adult HPI <Cholo Cardona MD - Last Filed: 12/21/23 23:50> General Chief complaint: Syncope Stated complaint: vomiting, fainted Time Seen by Provider: 12/21/23 19:46 History of Present Illness HPI narrative: Patient is a 28-year-old female with past medical history of [id number] diabetes who presents emergency department for evaluation of syncope. Patient was feeling unwell and was in her bed today when she sat up on the side and attempted to stand up and lowered herself to the ground as she felt as if she was going to pass out. Patient had an episode of syncope and vomiting per family at bedside. No significant trauma to her head. Due to this she presents here for continued evaluation. Patient works at [employer] has multiple sick contact exposures. Related Data Home Medications Medication Instructions Recorded Confirmed propranolol 80 mg capsule,24 80 mg PO DAILY Hypertension 06/12/21 09/13/21 hr,extended release venlafaxine 75 mg capsule,extended 75 mg PO DAILY Anxiety 06/12/21 09/13/21 release 24 hr Previous Rx's Medication Instructions Recorded fluticasone propionate 50 1 spr NS DAILY #1 ea 09/13/21 mcg/actuation nasal spray,suspension ondansetron 4 mg disintegrating 4 mg PO Q8HP PRN Nausea #20 tabs 10/23/21 tablet cephalexin 500 mg capsule 500 mg PO TID #21 caps 11/29/22 promethazine 25 mg tablet 25 mg PO TID PRN nausea and 12/21/23 vomiting #12 tabs Allergies Allergy/AdvReac Type Severity Reaction Status Date / Time No Known Allergies Allergy Verified 06/07/21 17:29 [facility] <Cholo Cardona MD - Last Filed: 12/21/23 23:50> [facility] Disclaimer: The information contained in this section may have been updated after the patient was seen, as this information can be updated by other users. Social History Smoking Status: Never smoker alcohol intake: never substance use type: denies use current occupational status: employed Travel in the last 8 weeks: None household members: spouse housing: house current occupation: [employer] current occupational exposures/hazards: No caffeine: Yes <Cholo Cardona MD - Last Filed: 12/21/23 23:50> ROS Obtained: Yes Systems reviewed as appropriate & no additional complaints except as documented Physical Exam <Cholo Cardona MD - Last Filed: 12/21/23 23:50> General General appearance: alert and in no apparent distress Head Head exam: atraumatic and normocephalic Eye Eye exam: Present PERRL and EOMI ENT ENT exam: Present mucous membranes moist Neck Neck exam: Present normal inspection Chest Chest inspection: Present normal inspection and symmetric chest wall rise Respiratory Respiratory exam: Present normal lung sounds bilaterally; Absent respiratory distress Cardiovascular Cardiovascular exam: Present regular rate and normal rhythm Abdominal Exam Abdominal exam: Present soft; Absent tenderness Extremities Exam Extremities exam: Present normal inspection Neurological Exam Neurological exam: Present CN II-XII intact and other (Eyes closed, arousable to voice, conversational); Absent motor sensory deficit Psychiatric Psychiatric exam: Present normal affect Skin Skin exam: Present warm and dry Medical Decision Making <Cholo Cardona MD - Last Filed: 12/21/23 23:50> Braxton Rogers Pt receiving controlled substance: No Vital Signs: 12/21/23 19:44 12/21/23 20:00 12/21/23 21:29 Temperature 97.7 F Temperature Source Oral Pulse Rate 91 H 109 H Pulse Rate [Right] 94 H Respiratory Rate 14 14 13 Blood Pressure 128/78 100/64 L Blood Pressure [Right Arm] 128/84 Blood Pressure Mean 89 74 Blood Pressure Mean [Right Arm] 98 Blood Pressure Source [Right Arm] Automatic Cuff Blood Pressure Position [Right Arm] Sitting 02 Sat by Pulse Oximetry 98 99 97 Oxygen Delivery Method Room Air Room Air 12/21/23 21:30 12/21/23 22:01 12/22/23 00:21 Temperature Temperature Source Pulse Rate 111 H 110 H Pulse Rate [Right] Respiratory Rate 14 20 15 Blood Pressure 107/57 L 149/93 H 121/67 Blood Pressure [Right Arm] Blood Pressure Mean 71 108 76 Blood Pressure Mean [Right Arm] Blood Pressure Source [Right Arm] Blood Pressure Position [Right Arm] 02 Sat by Pulse Oximetry 98 95 98 Oxygen Delivery Method Room Air Room Air 12/22/23 00:30 Temperature Temperature Source Pulse Rate Pulse Rate [Right] Respiratory Rate 16 Blood Pressure 142/90 H Blood Pressure [Right Arm] Blood Pressure Mean 102 Blood Pressure Mean [Right Arm] Blood Pressure Source [Right Arm] Blood Pressure Position [Right Arm] 02 Sat by Pulse Oximetry 97 Oxygen Delivery Method Lab Data Lab Results 12/21/23 19:47: SARS-CoV-2 (PCR) Not detected, Influenza A Untype (PCR) Not detected, Influenza Type B (PCR) Not detected 12/21/23 19:55: WBC 13.1 H, RBC 5.96 H, Hgb 17.1 H, Hct 54.0 H, MCV 90.6, MCH 28.7, MCHC 31.6 L, RDW 14.1, Plt Count 178, MPV 9.9, Neut % (Auto) 84.6 H, Lymph % (Auto) 11.1, Glynn % (Auto) 2.2, Eos % (Auto) 1.1, Baso % (Auto) 1.0, Neut # (Auto) 11.1 H, Lymph # (Auto) 1.5, Glynn # (Auto) 0.3, Eos # (Auto) 0.2, Baso # (Auto) 0.1, D-Dimer 0.43, Sodium 138, Potassium 4.3, Chloride 102, Carbon Dioxide 28, Anion Gap 12.3, BUN 14, Creatinine 0.60, Estimated Creat Clear 187, Estimated GFR 117, Est GFR ( Amer) 142, Glucose 263 H, Calcium 10.0, Magnesium 1.8, Total Bilirubin 1.3, AST 40 H, ALT 47, Alkaline Phosphatase 95, T otal Protein 8.5 H, Albumin 4.8, Globulin 3.7 H, Albumin/Globulin Ratio 1.3, Lipase 86, Serum HCG, Qual Negative 12/21/23 19:59: VBG pH 7.33, VBG pCO2 47.9, VBG pO2 29.4, VBG HCO3 24.9, VBG Total CO2 26.3, VBG O2 Saturation 56.0, VBG Base Excess -1.0, VBG Lactic Acid 3.0 H 12/21/23 22:10: Urine Color Yellow, Urine Appearance Clear, Urine pH 5.5, Ur Specific [place] 1.010, Urine Protein Negative, Urine Glucose (UA) 3+, Urine Ketones 2+, Urine Blood Negative, Urine Nitrate Negative, Urine Bilirubin Negative, Urine Urobilinogen 0.2, Ur Leukocyte Esterase Negative, Urine RBC None, Urine WBC None, Ur Squamous Epith Cells Occasional, Urine Bacteria Trace, Urine Yeast 1+ 12/21/23 19:55 12/21/23 19:55 Orders (Tests/Meds): ED MEDICATIONS Discontinued Medications Generic Name Dose Route Start Last Admin Trade Name Freq PRN Reason Stop Dose Admin Lactated Ringer's 1,000 mls @ 999 mls/hr 12/21/23 19:57 12/21/23 20:09 Lactated Ringer's 1000 Ml Bag IV 12/21/23 20:57 999 mls/hr .Q1H1M ONE Administration Lactated Ringer's 1,000 mls @ 999 mls/hr 12/21/23 22:51 12/21/23 23:06 Lactated Ringer's 1000 Ml Bag IV 12/21/23 23:51 999 mls/hr .Q1H1M ONE Administration Ondansetron HCl 4 mg 12/21/23 19:57 12/21/23 20:10 Ondansetron 4mg Odt SL 12/21/23 19:58 4 mg ONCE ONE Administration Promethazine HCl 25 mg 12/21/23 22:11 12/21/23 22:18 Promethazine Hcl 25mg/Ml 1ml Vial IV 12/21/23 22:12 25 mg ONCE ONE Administration Sodium Chloride 25 ml 12/21/23 22:11 12/21/23 22:18 Sodium Chloride 0.9% 25ml Bag IV 12/21/23 22:12 25 ml ONCE ONE Administration ORDERS Category Date Time Status CXR --portable [XR chest portable] Stat Exams 12/21/23 19:57 Completed CBC w/Auto Diff [Complete Blood Count Auto Diff] Stat Lab 12/21/23 19:55 Completed CMP [Comprehensive Metabolic Panel] Stat Lab 12/21/23 19:55 Completed D-Dimer Stat Lab 12/21/23 19:55 Completed HCG Qualitative, Serum Stat Lab 12/21/23 19:55 Completed Lactic Acid Follow Up (RFLX 1) Stat Lab 12/22/23 00:22 Ordered Lipase Stat Lab 12/21/23 19:55 Completed MG [Magnesium] Stat Lab 12/21/23 19:55 Completed Rapid PCR Covid and Flu A/B Stat Lab 12/21/23 19:47 Completed UA [Urinalysis and Microscopic] Stat Lab 12/21/23 22:10 Completed VBG [Venous Blood Gas] Stat RT 12/21/23 19:59 Completed ECG Data Tracing #1: Independently interpreted by me, rate is 94, rhythm is regular, axis is normal, no ST elevation in anatomical contiguous leads, no evidence of Brugada, no long QT, QTc 439, no dagger like Q waves in the lateral leads, no evidence of LVH, no delta wave. Medical Decision Narrative: In summary patient is a 28-year-old female past medical history described above who presents emergency department for evaluation of vomiting, syncope. Patient is hemodynamically stable and nontoxic-appearing upon arrival, afebrile. Differential diagnosis includes vasovagal syncope, DKA, viral syndrome, cardiac syncope, among others. History is consistent with vasovagal syncope. No significant trauma to warrant intracranial imaging although was considered. Workup will be conducted with hematologic labs, viral swab. Initial inventions include Zofran, crystalloid bolus. Initial workup reviewed by me, hematologic labs are nonactionable, there is mild leukocytosis, no acidosis, glucose is 263 no evidence of DKA, hCG negative. Urinalysis interpreted by me and not consistent with infection, viral swab negative. Upon repeat evaluation patient had persistent nausea for which Phenergan will be given. Clinically she does look better than when she arrived, is conversational, eyes open, sitting up in bed. Her heart rate intermittently goes into the 120s for another liter crystalloid bolus will be administered and screening for pulmonary embolism will be conducted with D-dimer although unlikely. D-dimer, repeat evaluation pending at time of transfer of care to the oncoming physician, Dr. Castellano. <Stacey Castellano MD - Last Filed: 12/22/23 01:00> Vital Signs: 12/21/23 19:44 12/21/23 20:00 12/21/23 21:29 Temperature 97.7 F Temperature Source Oral Pulse Rate 91 H 109 H Pulse Rate [Right] 94 H Respiratory Rate 14 14 13 Blood Pressure 128/78 100/64 L Blood Pressure [Right Arm] 128/84 Blood Pressure Mean 89 74 Blood Pressure Mean [Right Arm] 98 Blood Pressure Source [Right Arm] Automatic Cuff Blood Pressure Position [Right Arm] Sitting 02 Sat by Pulse Oximetry 98 99 97 Oxygen Delivery Method Room Air Room Air 12/21/23 21:30 12/21/23 22:01 12/22/23 00:21 Temperature Temperature Source Pulse Rate 111 H 110 H Pulse Rate [Right] Respiratory Rate 14 20 15 Blood Pressure 107/57 L 149/93 H 121/67 Blood Pressure [Right Arm] Blood Pressure Mean 71 108 76 Blood Pressure Mean [Right Arm] Blood Pressure Source [Right Arm] Blood Pressure Position [Right Arm] 02 Sat by Pulse Oximetry 98 95 98 Oxygen Delivery Method Room Air Room Air 12/22/23 00:30 Temperature Temperature Source Pulse Rate Pulse Rate [Right] Respiratory Rate 16 Blood Pressure 142/90 H Blood Pressure [Right Arm] Blood Pressure Mean 102 Blood Pressure Mean [Right Arm] Blood Pressure Source [Right Arm] Blood Pressure Position [Right Arm] 02 Sat by Pulse Oximetry 97 Oxygen Delivery Method Lab Data Lab Results 12/21/23 19:47: SARS-CoV-2 (PCR) Not detected, Influenza A Untype (PCR) Not detected, Influenza Type B (PCR) Not detected 12/21/23 19:55: WBC 13.1 H, RBC 5.96 H, Hgb 17.1 H, Hct 54.0 H, MCV 90.6, MCH 28.7, MCHC 31.6 L, RDW 14.1, Plt Count 178, MPV 9.9, Neut % (Auto) 84.6 H, Lymph % (Auto) 11.1, Glynn % (Auto) 2.2, Eos % (Auto) 1.1, Baso % (Auto) 1.0, Neut # (Auto) 11.1 H, Lymph # (Auto) 1.5, Glynn # (Auto) 0.3, Eos # (Auto) 0.2, Baso # (Auto) 0.1, D-Dimer 0.43, Sodium 138, Potassium 4.3, Chloride 102, Carbon Dioxide 28, Anion Gap 12.3, BUN 14, Creatinine 0.60, Estimated Creat Clear 187, Estimated GFR 117, Est GFR ( Amer) 142, Glucose 263 H, Calcium 10.0, Magnesium 1.8, Total Bilirubin 1.3, AST 40 H, ALT 47, Alkaline Phosphatase 95, T otal Protein 8.5 H, Albumin 4.8, Globulin 3.7 H, Albumin/Globulin Ratio 1.3, Lipase 86, Serum HCG, Qual Negative 12/21/23 19:59: VBG pH 7.33, VBG pCO2 47.9, VBG pO2 29.4, VBG HCO3 24.9, VBG Total CO2 26.3, VBG O2 Saturation 56.0, VBG Base Excess -1.0, VBG Lactic Acid 3.0 H 12/21/23 22:10: Urine Color Yellow, Urine Appearance Clear, Urine pH 5.5, Ur Specific [place] 1.010, Urine Protein Negative, Urine Glucose (UA) 3+, Urine Ketones 2+, Urine Blood Negative, Urine Nitrate Negative, Urine Bilirubin Negative, Urine Urobilinogen 0.2, Ur Leukocyte Esterase Negative, Urine RBC None, Urine WBC None, Ur Squamous Epith Cells Occasional, Urine Bacteria Trace, Urine Yeast 1+ Orders (Tests/Meds): ED MEDICATIONS Discontinued Medications Generic Name Dose Route Start Last Admin Trade Name Freq PRN Reason Stop Dose Admin Lactated Ringer's 1,000 mls @ 999 mls/hr 12/21/23 19:57 12/21/23 20:09 Lactated Ringer's 1000 Ml Bag IV 12/21/23 20:57 999 mls/hr .Q1H1M ONE Administration Lactated Ringer's 1,000 mls @ 999 mls/hr 12/21/23 22:51 12/21/23 23:06 Lactated Ringer's 1000 Ml Bag IV 12/21/23 23:51 999 mls/hr .Q1H1M ONE Administration Ondansetron HCl 4 mg 12/21/23 19:57 12/21/23 20:10 Ondansetron 4mg Odt SL 12/21/23 19:58 4 mg ONCE ONE Administration Promethazine HCl 25 mg 12/21/23 22:11 12/21/23 22:18 Promethazine Hcl 25mg/Ml 1ml Vial IV 12/21/23 22:12 25 mg ONCE ONE Administration Sodium Chloride 25 ml 12/21/23 22:11 12/21/23 22:18 Sodium Chloride 0.9% 25ml Bag IV 12/21/23 22:12 25 ml ONCE ONE Administration ORDERS Category Date Time Status CXR --portable [XR chest portable] Stat Exams 12/21/23 19:57 Completed CBC w/Auto Diff [Complete Blood Count Auto Diff] Stat Lab 12/21/23 19:55 Completed CMP [Comprehensive Metabolic Panel] Stat Lab 12/21/23 19:55 Completed D-Dimer Stat Lab 12/21/23 19:55 Completed HCG Qualitative, Serum Stat Lab 12/21/23 19:55 Completed Lactic Acid Follow Up (RFLX 1) Stat Lab 12/22/23 00:22 Ordered Lipase Stat Lab 12/21/23 19:55 Completed MG [Magnesium] Stat Lab 12/21/23 19:55 Completed Rapid PCR Covid and Flu A/B Stat Lab 12/21/23 19:47 Completed UA [Urinalysis and Microscopic] Stat Lab 12/21/23 22:10 Completed VBG [Venous Blood Gas] Stat RT 12/21/23 19:59 Completed Medical Decision Narrative: In summary patient is a 28-year-old female past medical history described above who presents emergency department for evaluation of vomiting, syncope. Patient is hemodynamically stable and nontoxic-appearing upon arrival, afebrile. Differential diagnosis includes vasovagal syncope, DKA, viral syndrome, cardiac syncope, among others. History is consistent with vasovagal syncope. No significant trauma to warrant intracranial imaging although was considered. Workup will be conducted with hematologic labs, viral swab. Initial inventions include Zofran, crystalloid bolus. Initial workup reviewed by me, hematologic labs are nonactionable, there is mild leukocytosis, no acidosis, glucose is 263 no evidence of DKA, hCG negative. Urinalysis interpreted by me and not consistent with infection, viral swab negative. Upon repeat evaluation patient had persistent nausea for which Phenergan will be given. Clinically she does look better than when she arrived, is conversational, eyes open, sitting up in bed. Her heart rate intermittently goes into the 120s for another liter crystalloid bolus will be administered and screening for pulmonary embolism will be conducted with D-dimer although unlikely. D-dimer, repeat evaluation pending at time of transfer of care to the oncoming physician, Dr. Castellano. Castellano: Upon my assumption of care patient is resting comfortably. She remains mildly tachycardic with heart rate between 110 and 115. She is completely asymptomatic and feels well. She was asleep and easily arousable. I reviewed workup performed by primary provider and agree with his assessment and plan as documented. D-dimer negative at 0.43, no further action necessary at this time. Patient completed IV fluids. She was appropriate for discharge despite mild persistent tachycardia though it has continued to improve and is down as low as 108 while I was evaluating the patient in the room, she was able to tolerate oral intake and ambulate successfully without exacerbation of symptoms. She was referred to cardiology for outpatient follow-up, she was also given strict instructions to follow-up with her primary care physician in a few days, and strict return precautions for the ER. These instructions were provided verbally and in writing. Patient and family at bedside indicated understanding and the patient was discharged in stable condition. Critical Care <Cholo Cardona MD - Last Filed: 12/21/23 23:50> Critical Care Time Critical Care Time: No
[2023-12-21 20:00] VITALS: BP 128/78; PULSE 91; RESP 14; O2SAT 99
[2023-12-21 20:02] LABS: Coronavirus 19, PCR Not Detected (NotDetected); Influenza A, PCR Not Detected (NotDetected); Influenza B, PCR Not Detected (NotDetected)
[2023-12-21 20:05] LABS: Basophils # 0.1 K/mm3 (0-0.2); Eosinophils # 0.2 K/mm3 (0.0-0.4); Eosinophils % 1.1 % (0.1-12.0); Hemoglobin 17.1 g/dL (12.2-16.2); Lymphocytes # 1.5 K/mm3 (0.7-4.5); Lymphocytes % 11.1 % (10-50); Mean Corpuscular HGB Conc 31.6 g/dL (31.8-35.4); Mean Corpuscular Hemoglobin 28.7 pg (27.0-31.2); Mean Corpuscular Volume 90.6 fl (81-99); Mean Platelet Volume 9.9 fl (7.4-10.4); Monocytes # 0.3 K/mm3 (0.1-1.0); Monocytes % 2.2 % (1.7-9.3); Neutrophils # 11.1 K/mm3 (1.8-7.8); Neutrophils % 84.6 % (37.0-80.0); Platelet Count 178 K/mm3 (142-424); Red Blood Count 5.96 M/mm3 (4.20-5.40); Red Cell Distribution Width 14.1 % (11.5-17.5); White Blood Count 13.1 K/mm3 (4.8-10.8)
--- NOTE | 2023-12-21 20:07 | ECG_ITS ---
APPROVED REPORT Exam: Resting ECG HR:94 bpm ECG Measurements Heart Rate 94 AXES [place] 162 P 38 QRSd 122 QRS 23 QT 387 T 20 QTc 439 Critical Notification Critical Value: No Conclusion SINUS RHYTHM MODERATE INTRAVENTRICULAR CONDUCTION DELAY [110+ ms QRS DURATION] NONSPECIFIC T-WAVE ABNORMALITY BORDERLINE ECG Electronically signed by : SALVADOR MICHAELS, 12/22/2023 01:45:37
[2023-12-21] MEDS: LACTATED RINGERS 1000ML 1,000 ML 999 ML IV ×2 (20:09→23:06)
[2023-12-21] MEDS: ONDANSETRON 4MG ODT 4 MG SL (20:10)
[2023-12-21 20:13] LABS: Chloride 102 mmol/L (98-107); Potassium 4.3 mmoL/L (3.5-5.1); Sodium 138 mmol/L (136-145)
[2023-12-21 20:14] LABS: HCG Qualitative, Serum Negative (Negative)
[2023-12-21 20:15] LABS: Alanine Aminotransferase 47 U/L (12-78); Aspartate Amino Transferase 40 U/L (14-36); Blood Urea Nitrogen 14 mg/dl (7-17); Creatinine Clearance Estimated 187 mL/min (50-200); Estimated Glomerular Filt Rate 117 ml/min (>60); GFR (African American) 142 ML/MIN (>60)
[2023-12-21 20:16] LABS: Albumin Level 4.8 g/dl (3.5-5.0); Albumin/Globulin Ratio 1.3 (1.1-1.8); Alkaline Phosphatase 95 U/L (38-126); Anion Gap 12.3 mEq/L (5-15); Bilirubin,Total 1.3 mg/dl (0.2-1.3); Carbon Dioxide 28 mmol/L (22.0-30.0); Globulin 3.7 g/dL (1.3-3.2); Glucose 263 mg/dl (74-100); Lipase 86 U/L (23-300); Magnesium 1.8 mg/dl (1.6-2.3); Total Protein,Serum 8.5 g/dl (6.3-8.2)
[2023-12-21 20:21] LABS: VBG HCO3 24.9 mmol/L (23-30); VBG PCO2 47.9 mmol/L (35-51); VBG PH 7.33 mmol/L (7.31-7.41); VBG PO2 29.4 mmol/L (28-40); VBG Total CO2 26.3 mmol/L (23-27)
[2023-12-21 21:29] VITALS: BP 100/64; PULSE 109; RESP 13; O2SAT 97
--- NOTE | 2023-12-21 21:29 | PC.NURSE ---
Asked pt is she was able to give us UA now. pt reports she can not pee at this time.
--- NOTE | 2023-12-21 21:29 | PC.NURSE ---
Tried obtaining a urine sample from this patient at approximately 2029 and patient was unable to and defecated instead.
[2023-12-21 21:30] VITALS: BP 107/57; PULSE 111; RESP 14; O2SAT 98
[2023-12-21 22:01] VITALS: BP 149/93; PULSE 110; RESP 20; O2SAT 95
[2023-12-21 22:14] LABS: Microscopic, Urine URINE MICROSCOPIC (MICROSCOPIC)
[2023-12-21] MEDS: SODIUM CHLORIDE 0.9% 25ML BAG 25 ML IV (22:18)
[2023-12-21] MEDS: PROMETHAZINE HCL 25MG/ML 1ML VIAL 25 MG IV (22:18)
[2023-12-21 22:19] LABS: Appearance,Urine CLEAR (Clear); Bilirubin,Urine Negative (Negative); Blood, Urine Negative (Negative); Color,Urine YELLOW (Yellow); Glucose,Urine (UA) 3+ (Negative); Ketones,Urine 2+ (Negative); Leukocyte Esterase,Urine Negative (Negative); Nitrate,Urine Negative (Negative); PH,Urine 5.5 (5.0-8.5); Protein,Urine Negative (Negative); Urobilinogen,Urine 0.2 EU/dl (0.2)
[2023-12-21 22:38] LABS: Bacteria,Urine Trace /lpf; Squamous Epithelial Cell,Urine Occasional #/hpf (0-5); Yeast,Urine 1+ /lpf
[2023-12-21 23:11] LABS: D-Dimer 0.43 ug/mL (0.0-0.5)
[2023-12-22 00:21] VITALS: BP 121/67; RESP 15; O2SAT 98
[2023-12-22 00:22] LABS: Reflex Lactic Add Lactic Reflex
--- NOTE | 2023-12-22 00:26 | PC.NURSE ---
FSBS 245
[2023-12-22 00:30] VITALS: BP 142/90; RESP 16; O2SAT 97
[2023-12-22 01:14] VITALS: BP 136/72; PULSE 126; RESP 15; TEMP 36.5; O2SAT 94
== END 2023-12-22 01:17 | disposition home or self-care (01) ==
PROVIDERS: Emergency Medicine; Emergency Provider Emergency Medicine
DX: R00.0 Tachycardia, unspecified (principal); R55 Syncope and collapse; R11.2 Nausea with vomiting, unspecified; E11.9 Type 2 diabetes mellitus without complications
CPT/HCPCS: 71045; 80053; 81001; 82803; 83690; 83735; 84703; 85025; 85378; 87636; 93005; 96361; 96374; 99285

== ENCOUNTER 2024-07-31 11:22 | Emergency (ER) | payer BC, SELFPAY ==
--- NOTE | 2024-07-31 11:37 | ED_ITS ---
Discharge Plan Disposition Patient Disposition: Home, Self-Care Condition: Good Prescriptions Prescriptions: New azithromycin [Zithromax] 250 mg tablet 250 mg PO UD DOSE PK Qty: 6 0RF Rx Instructions: Take two (2) tablets today, then one (1) tablet days #2 thru #5 mogwmobewhkwihx-nceyfzsms-ZI [Bromfed DM] 2-30-10 mg/5 mL Syrup 5 ml PO Q6H PRN (Reason: Cough) Qty: 240 0RF mupirocin 2 % ointment 1 applic topical TID 7 Days Qty: 15 0RF No Action lisinopril 10 mg tablet 10 mg PO DAILY Patient Comments: TAKE 1 TABLET BY MOUTH ONCE DAILY insulin lispro [Humalog KwikPen Insulin] 100 unit/mL insulin pen 45 unit SQ TID Patient Comments: INJECT 45 UNITS SUBCUTANEOUSLY THREE TIMES DAILY WITH MEALS Jardiance 25 mg tablet 25 mg PO DAILY Patient Comments: TAKE 1 TABLET BY MOUTH ONCE DAILY Mounjaro 5 mg/0.5 mL pen injector 5 mg SQ WEEKLY venlafaxine 75 MG capsule,extended release 24hr 75 mg PO DAILY Referrals Follow up/Referrals: Provider,Referral, MD [Primary Care Provider] - See instructions Activity Restrictions/Add. Instructions Additional Instructions/Restrictions: Drink plenty of fluids. Take tylenol or ibuprofen for pain or fever. Take the medications as directed. Follow up with your regular doctor. GO TO THE ER FOR ANY WORSENING SYMPTOMS Clinical Impressions Clinical Impression: Sinusitis Qualifiers: Sinusitis location: unspecified location Chronicity: unspecified Qualified Code(s): J32.9 - Chronic sinusitis, unspecified Stand Alone Forms Stand Alone Forms: Work/School Release Instructions Patient Instructions: Sinusitis, DI for Sinusitis Print Language Print Language: Faroese Discharge ED Provider: Seth Orellana [facility] General Stated complaint: head congestion Time Seen by Provider: 07/31/24 11:37 Related Data Home Medications ?Medication ?Instructions ?Recorded ?Confirmed venlafaxine 75 mg capsule,extended 75 mg PO DAILY Anxiety 06/12/21 07/31/24 release 24 hr empagliflozin 25 mg tablet 25 mg PO DAILY 07/31/24 07/31/24 (Jardiance) insulin lispro 100 unit/mL 45 unit SQ TID 07/31/24 07/31/24 subcutaneous pen (Humalog KwikPen (U-100) Insulin) lisinopril 10 mg tablet 10 mg PO DAILY 07/31/24 07/31/24 tirzepatide 5 mg/0.5 mL 5 mg SQ WEEKLY 07/31/24 07/31/24 subcutaneous pen injector (Terencejatingabinoro) Previous Rx's ?Medication ?Instructions ?Recorded azithromycin 250 mg tablet 250 mg PO UD DOSE PK #6 tabs 07/31/24 (Zithromax) siaubybatvcztmw-mfntwyfpufqovvv-NA 5 ml PO Q6H PRN Cough #240 mL 07/31/24 2 mg-30 mg-10 mg/5 mL oral syrup (Bromfed DM) mupirocin 2 % topical ointment 1 applic topical TID 7 days #15 07/31/24 grams Allergies Allergy/AdvReac Type Severity Reaction Status Date / Time No Known Allergies Allergy Verified 06/07/21 17:29 [facility] Disclaimer: The information contained in this section may have been updated after the patient was seen, as this information can be updated by other users. Social History Smoking Status: Never smoker alcohol intake: never substance use type: denies use current occupational status: employed Travel in the last 8 weeks: None household members: spouse housing: house current occupation: [employer] current occupational exposures/hazards: No caffeine: Yes ROS Obtained: Yes All systems reviewed & no additional complaints except as documented Constitutional Constitutional: Reports poor appetite Eyes Eyes: Reports system reviewed and no additional complaints, except as documented ENT Ears, Nose, Mouth, and Throat: Reports as per HPI Cardiovascular Cardiovascular: Reports system reviewed and no additional complaints, except as documented and Denies chest pain Respiratory Respiratory: Denies shortness of breath, Reports chest congestion, Reports cough, Denies stridor and Denies wheezing Gastrointestinal Gastrointestingal: Reports system reviewed and no additional complaints, except as documented; Denies abdominal pain, diarrhea or vomiting Musculoskeletal Musculoskeletal: Reports system reviewed and no additional complaints, except as documented and Denies arthralgias Integumentary/Breasts Skin/Breast: Reports system reviewed and no additional complaints, except as documented and Denies rash Neurologic Neurologic: Denies paresthesias Allergic/Immunologic Allergic/Immunologic: Denies wheezing Physical Exam General General appearance: alert and in no apparent distress Eye Eye exam: Present normal appearance, PERRL and EOMI ENT ENT exam: Present mucous membranes moist and normal external ear exam Expanded ENT Exam External ear exam: Present normal external inspection TM/Canal exam: Bilateral TM: erythema and bulging Nose exam: Absent sinus tenderness Nasal speculum exam: Bilateral: normal Mouth exam: Present normal external inspection; Absent drooling Teeth exam: Present normal inspection Throat exam: Present tonsillar erythema and tonsillomegaly Neck Neck exam: Present normal inspection, full ROM and trachea midline; Absent tenderness, lymphadenopathy or thyromegaly Chest Chest inspection: Present normal inspection and symmetric chest wall rise; Absent tenderness or rash Respiratory Respiratory exam: Present normal lung sounds bilaterally; Absent respiratory distress, wheezes, stridor or accessory muscle use Cardiovascular Cardiovascular exam: Present regular rate, normal rhythm and normal heart sounds Abdominal Exam Abdominal exam: Present soft; Absent distention, tenderness, guarding, rebound or rigidity Extremities Exam Extremities exam: Present normal inspection, full ROM and normal capillary refill; Absent tenderness or calf tenderness Back Exam Back exam: Present normal inspection and full ROM; Absent tenderness Neurological Exam Neurological exam: Present alert and oriented X3 Psychiatric Psychiatric exam: Present normal affect and normal mood Skin Skin exam: Present warm, dry, intact and normal color Lymphatic Lymphatic Findings: no adenopathy Medical Decision Making Medical Records Medical records reviewed: No I reviewed the patient's medical records. Screening: Per USPSTF and CDC recommendations, given the prevalence of disease in our region, it is our hospital?s policy to screen for HIV and viral Hepatitis for all patients aged 18 and over and those with ongoing risk factors. Braxton Inquiry Pt receiving controlled substance: No Lab Data Lab results reviewed: Yes I reviewed the patient's lab results.
[2024-07-31 11:40] VITALS: BP 107/69; PULSE 90; RESP 20; TEMP 36.9; O2SAT 97; BMI 28.8
[2024-07-31 12:11] VITALS: BP 107/69; PULSE 90; RESP 20; TEMP 36.9; O2SAT 97
== END 2024-07-31 12:16 | disposition home or self-care (01) ==
PROVIDERS: Emergency Provider Nurse Practitioner Family
DX: J32.9 Chronic sinusitis, unspecified (principal)
CPT/HCPCS: 99212; G0381

== ENCOUNTER 2024-09-27 18:28 | Emergency (ER) | payer BC, SELFPAY ==
[2024-09-27 18:39] VITALS: BP 142/76; PULSE 122; RESP 16; TEMP 37.2; O2SAT 96; BMI 29.2
--- NOTE | 2024-09-27 18:53 | HMH.EDGENADL ---
Discharge Plan Disposition Patient Disposition: Home, Self-Care Condition: Good Prescriptions Prescriptions: New azithromycin [Zithromax] 500 mg tablet 500 mg PO DAILY 2 Days Qty: 2 0RF Rx Instructions: start on day 2 of therapy No Action lisinopril 10 mg tablet 10 mg PO DAILY Patient Comments: TAKE 1 TABLET BY MOUTH ONCE DAILY insulin lispro [Humalog KwikPen Insulin] 100 unit/mL insulin pen 45 unit SQ TID Patient Comments: INJECT 45 UNITS SUBCUTANEOUSLY THREE TIMES DAILY WITH MEALS Rx Instructions: with meals venlafaxine 75 MG capsule,extended release 24hr 75 mg PO DAILY insulin degludec [Tresiba FlexTouch U-100] 100 unit/mL (3 mL) insulin pen 30 unit SQ BID Referrals Follow up/Referrals: Provider,Referral, [Primary Care Provider] - See instructions Activity Restrictions/Add. Instructions Additional Instructions/Restrictions: You were seen for an atypical pneumonia. Please complete your antibiotics. Follow-up with your PCP this week for repeat labs. Clinical Impressions Clinical Impression: Atypical pneumonia Stand Alone Forms Stand Alone Forms: Work/School Release Instructions Patient Instructions: Atypical Pneumonia Print Language Print Language: Citizen [place] Discharge ED Provider: Ronnie Silva General Adult HPI <MARILU Vizcarra - Last Filed: 09/27/24 20:46> General Chief complaint: Upper Respiratory Infection Stated complaint: dizzy cough body aches Time Seen by Provider: 09/27/24 18:32 Mode of Arrival: Wheelchair Source of Information: Patient Limitations: No Limitations Description of Symptoms (Recalled from ER Triage Doc. by RN): Pt. presents to the ED with complaints of cough, congestion bodyaches, chills, and palpatations since Saturday night. History of Present Illness HPI narrative: Patient presents with congestion, cough hoarseness, dizziness. Symptoms have been ongoing for 3 days. Her son was recently treated for scarlet fever. She does have diabetes and blood sugars have been running over 300. She does report that her heart rate has been high. complaint: couigh, congestion, dizzy Onset (ago): day(s) Severity: moderate Consistency: constant Relieving factors: none Exacerbating factors: none Associated symptoms: fever/chills (no documented fever, has felt hot ) Treatments prior to arrival: none Related Data Home Medications ?Medication ?Instructions ?Recorded ?Confirmed venlafaxine 75 mg capsule,extended 75 mg PO DAILY Anxiety 06/12/21 09/27/24 release 24 hr insulin lispro 100 unit/mL 45 unit SQ TID 07/31/24 09/27/24 subcutaneous pen (Humalog KwikPen (U-100) Insulin) lisinopril 10 mg tablet 10 mg PO DAILY 07/31/24 09/27/24 insulin degludec 100 unit/mL (3 30 unit SQ BID 09/27/24 09/27/24 mL) subcutaneous pen (Tresiba FlexTouch U-100 insulin) Previous Rx's ?Medication ?Instructions ?Recorded azithromycin 500 mg tablet 500 mg PO DAILY 2 days #2 tabs 09/27/24 (Zithromax) Allergies Allergy/AdvReac Type Severity Reaction Status Date / Time No Known Allergies Allergy Verified 09/27/24 18:45 PFSH <MARILU Vizcarra - Last Filed: 09/27/24 20:46> [facility] Disclaimer: The information contained in this section may have been updated after the patient was seen, as this information can be updated by other users. Medical History (Updated 09/27/24 @ 20:41 by MARILU Vizcarra) Hypertension Depression Diabetes mellitus type 1 Social History Smoking Status: Never smoker alcohol intake: never substance use type: denies use current occupational status: employed Travel in the last 8 weeks: None household members: spouse housing: house current occupation: [email or web address] current occupational exposures/hazards: No caffeine: Yes Have you lived/traveled outside [place] in past 30 days?: No Contact w/someone who lives/traveled outside US past 30 days?: No Exposure to someone with infectious disease in past 14 days?: No Do you have a fever (greater than 100.4 F or 38 C)?: No Have you tested positive for COVID-19: No Exposed to someone with COVID-19 in past 14 days?: No Do you have a sore throat?: Yes Do you have a cough?: Yes Do you have any weakness?: Yes Do you have any diarrhea?: No Are you experiencing any unusual bleeding?: No Do you have any muscle aches/pain?: No Do you have any abdominal pain?: No Are you experiencing loss of taste or smell?: No Other Medical History Have you received the Flu Vaccine for this season: Yes Have you received the Pneumonia Vaccine: No <MARILU Vizcarra - Last Filed: 09/27/24 20:46> ROS Obtained: Yes Systems reviewed as appropriate & no additional complaints except as documented Physical Exam <MARILU Vizcarra - Last Filed: 09/27/24 20:46> General General appearance: alert and in no apparent distress Head Head exam: atraumatic and normocephalic Eye Eye exam: Present normal appearance and EOMI ENT ENT exam: Present normal exam, normal oropharynx, mucous membranes moist, TM's normal bilaterally and normal external ear exam Chest Chest inspection: Present symmetric chest wall rise Respiratory Respiratory exam: Present normal lung sounds bilaterally; Absent wheezes or stridor Cardiovascular Cardiovascular exam: Present regular rate and normal rhythm; Absent systolic murmur Extremities Exam Extremities exam: Present full ROM Neurological Exam Neurological exam: Present alert and oriented X3 Psychiatric Psychiatric exam: Present normal affect and normal mood Skin Skin exam: Present warm, dry and intact Medical Decision Making <MARILU Vizcarra - Last Filed: 09/27/24 20:46> Medical Records Screening: Per USPSTF and CDC recommendations, given the prevalence of disease in our region, it is our hospital?s policy to screen for HIV and viral Hepatitis for all patients aged 18 and over and those with ongoing risk factors. Braxton Inquiry Pt receiving controlled substance: No Vital Signs: 09/27/24 18:39 09/27/24 20:05 09/27/24 20:48 Temperature 98.9 F 98.4 F 98.6 F Temperature Source Oral Oral Oral Pulse Rate 101 H 78 Pulse Rate [Right Brachial] 122 H Respiratory Rate 16 16 16 Blood Pressure 122/76 124/74 Blood Pressure [Left Arm] 142/76 H Blood Pressure Mean [Left Arm] 98 Blood Pressure Source Automatic Cuff Automatic Cuff Blood Pressure Source [Left Arm] Automatic Cuff Blood Pressure Position Sitting Sitting Blood Pressure Position [Left Arm] Sitting 02 Sat by Pulse Oximetry 96 95 Oxygen Delivery Method Room Air Room Air Room Air Lab Data Lab Results 09/27/24 18:34: SARS-CoV-2 (PCR) Not detected, Influenza A Untype (PCR) Not detected, Influenza Type B (PCR) Not detected 09/27/24 19:00: WBC 11.1 H, RBC 4.94, Hgb 13.5, Hct 40.8, MCV 82.6, MCH 27.3, MCHC 33.1, RDW 13.7, Plt Count 209, MPV 11.4 H, Neut % (Auto) 62.3, Lymph % (Auto) 30.4, [place] % (Auto) 4.7, Eos % (Auto) 1.8, Baso % (Auto) 0.5, Neut # (Auto) 6.9, Lymph # (Auto) 3.4, [place] # (Auto) 0.5, Eos # (Auto) 0.2, Baso # (Auto) 0.1, Sodium 130 L, Potassium 3.6, Chloride 99, Carbon Dioxide 25, Anion Gap 9.6, BUN 11, Creatinine 0.50 L, Estimated Creat Clear 205, Estimated GFR 144, Est GFR ( Amer) 174, Glucose 284 H, Calcium 9.4, Magnesium 1.6, Total Bilirubin 0.8, AST 33, ALT 40, Alkaline Phosphatase 62, Troponin I < 0.01, Total Protein 6.6, Albumin 4.0, Globulin 2.6, Albumin/Globulin Ratio 1.5, TSH 0.78, Group A Strep Rapid Negative 09/27/24 19:04: VBG pH 7.35, VBG pCO2 46.1, VBG pO2 45.1 H, VBG HCO3 24.8, VBG Total CO2 26.2, VBG O2 Saturation 81.0 H, VBG Base Excess -0.9, VBG Lactic Acid 3.3 H 09/27/24 20:04: Urine Color Yellow, Urine Appearance Clear, Urine pH 6.0, Ur Specific [place] >= 1.030, Urine Protein Negative, Urine Glucose (UA) 2+, Urine Ketones 1+, Urine Blood Negative, Urine Nitrate Negative, Urine Bilirubin Negative, Urine Urobilinogen 0.2, Ur Leukocyte Esterase Negative, Urine RBC None, Urine WBC Occasional, Ur Squamous Epith Cells 3-5, Urine Bacteria Trace, Urine HCG, Qual Negative 09/27/24 19:00 09/27/24 19:00 Orders (Tests/Meds): ED MEDICATIONS Discontinued Medications Generic Name Dose Route Start Last Admin Trade Name Marcoq PRN Reason Stop Dose Admin Azithromycin 500 mg 09/27/24 19:35 09/27/24 19:49 Azithromycin 250mg Tablet PO 09/27/24 19:36 500 mg ONCE ONE Administration Sodium Chloride 1,000 mls @ 999 mls/hr 09/27/24 18:48 09/27/24 19:30 Sod Chlor 0.9% 1000ml Bag IV 09/27/24 19:48 999 mls/hr .Q1H1M ONE Administration ORDERS Category Date Time Status Chest XR 2 view (NOT portable) [XR chest 2V] Stat Exams 09/27/24 18:55 Completed CBC w/Auto Diff [Complete Blood Count Auto Diff] Stat Lab 09/27/24 19:00 Completed CMP [Comprehensive Metabolic Panel] Stat Lab 09/27/24 19:00 Completed Magnesium Stat Lab 09/27/24 19:00 Completed Rapid PCR Covid and Flu A/B Stat Lab 09/27/24 18:34 Completed Rapid Strep Scrn Group A [Strep Scrn Group A (Rapid)] Lab 09/27/24 19:00 Completed Stat TSH [Thyroid Stimulating Hormone] Stat Lab 09/27/24 19:00 Completed Trop I [Troponin I] Stat Lab 09/27/24 19:00 Completed Urinalysis and Microscopic Stat Lab 09/27/24 20:04 Completed Urine , HCG Qual. Stat Lab 09/27/24 20:04 Completed Strep Screen Confirmation Stat Micro 09/27/24 19:00 Received Venous Blood Gas Stat RT 09/27/24 19:04 Completed Medical Decision Narrative: In summary patient is a 29-year-old who presents the emergency department for evaluation of dizziness, congestion,. Patient is tachycardic upon arrival, afebrile. Unremarkable physical. Differential diagnosis includes viral syndrome, pneumonia, DKA, dehydration. Initial workup will be conducted with labs, VBG, chest x-ray, COVID flu, strep. Initial inventions include IV fluid bolus. Initial workup reviewed by ms hypokalemia, hyperglycemia without DKA. Chest x-ray read by radiology was normal, we do feel that there is an atypical pneumonia. Patient was given a dose of Zithromax in the emergency department . Upon repeat evaluation patient remains stable after IV fluids. Given this patient is stable for discharge with a prescription for Zithromax. Return to the emergency department for any worsening symptoms. <Ronnie Silva MD - Last Filed: 09/27/24 23:28> Vital Signs: 09/27/24 18:39 09/27/24 20:05 09/27/24 20:48 Temperature 98.9 F 98.4 F 98.6 F Temperature Source Oral Oral Oral Pulse Rate 101 H 78 Pulse Rate [Right Brachial] 122 H Respiratory Rate 16 16 16 Blood Pressure 122/76 124/74 Blood Pressure [Left Arm] 142/76 H Blood Pressure Mean [Left Arm] 98 Blood Pressure Source Automatic Cuff Automatic Cuff Blood Pressure Source [Left Arm] Automatic Cuff Blood Pressure Position Sitting Sitting Blood Pressure Position [Left Arm] Sitting 02 Sat by Pulse Oximetry 96 95 Oxygen Delivery Method Room Air Room Air Room Air Lab Data Lab Results 09/27/24 18:34: SARS-CoV-2 (PCR) Not detected, Influenza A Untype (PCR) Not detected, Influenza Type B (PCR) Not detected 09/27/24 19:00: WBC 11.1 H, RBC 4.94, Hgb 13.5, Hct 40.8, MCV 82.6, MCH 27.3, MCHC 33.1, RDW 13.7, Plt Count 209, MPV 11.4 H, Neut % (Auto) 62.3, Lymph % (Auto) 30.4, [place] % (Auto) 4.7, Eos % (Auto) 1.8, Baso % (Auto) 0.5, Neut # (Auto) 6.9, Lymph # (Auto) 3.4, [place] # (Auto) 0.5, Eos # (Auto) 0.2, Baso # (Auto) 0.1, Sodium 130 L, Potassium 3.6, Chloride 99, Carbon Dioxide 25, Anion Gap 9.6, BUN 11, Creatinine 0.50 L, Estimated Creat Clear 205, Estimated GFR 144, Est GFR ( Amer) 174, Glucose 284 H, Calcium 9.4, Magnesium 1.6, Total Bilirubin 0.8, AST 33, ALT 40, Alkaline Phosphatase 62, Troponin I < 0.01, Total Protein 6.6, Albumin 4.0, Globulin 2.6, Albumin/Globulin Ratio 1.5, TSH 0.78, Group A Strep Rapid Negative 09/27/24 19:04: VBG pH 7.35, VBG pCO2 46.1, VBG pO2 45.1 H, VBG HCO3 24.8, VBG Total CO2 26.2, VBG O2 Saturation 81.0 H, VBG Base Excess -0.9, VBG Lactic Acid 3.3 H 09/27/24 20:04: Urine Color Yellow, Urine Appearance Clear, Urine pH 6.0, Ur Specific [place] >= 1.030, Urine Protein Negative, Urine Glucose (UA) 2+, Urine Ketones 1+, Urine Blood Negative, Urine Nitrate Negative, Urine Bilirubin Negative, Urine Urobilinogen 0.2, Ur Leukocyte Esterase Negative, Urine RBC None, Urine WBC Occasional, Ur Squamous Epith Cells 3-5, Urine Bacteria Trace, Urine HCG, Qual Negative Orders (Tests/Meds): ED MEDICATIONS Discontinued Medications Generic Name Dose Route Start Last Admin Trade Name Abdiel PRN Reason Stop Dose Admin Azithromycin 500 mg 09/27/24 19:35 09/27/24 19:49 Azithromycin 250mg Tablet PO 09/27/24 19:36 500 mg ONCE ONE Administration Sodium Chloride 1,000 mls @ 999 mls/hr 09/27/24 18:48 09/27/24 19:30 Sod Chlor 0.9% 1000ml Bag IV 09/27/24 19:48 999 mls/hr .Q1H1M ONE Administration ORDERS Category Date Time Status Chest XR 2 view (NOT portable) [XR chest 2V] Stat Exams 09/27/24 18:55 Completed CBC w/Auto Diff [Complete Blood Count Auto Diff] Stat Lab 09/27/24 19:00 Completed CMP [Comprehensive Metabolic Panel] Stat Lab 09/27/24 19:00 Completed Magnesium Stat Lab 09/27/24 19:00 Completed Rapid PCR Covid and Flu A/B Stat Lab 09/27/24 18:34 Completed Rapid Strep Scrn Group A [Strep Scrn Group A (Rapid)] Lab 09/27/24 19:00 Completed Stat TSH [Thyroid Stimulating Hormone] Stat Lab 09/27/24 19:00 Completed Trop I [Troponin I] Stat Lab 09/27/24 19:00 Completed Urinalysis and Microscopic Stat Lab 09/27/24 20:04 Completed Urine , HCG Qual. Stat Lab 09/27/24 20:04 Completed Strep Screen Confirmation Stat Micro 09/27/24 19:00 Received Venous Blood Gas Stat RT 09/27/24 19:04 Completed Medical Decision Narrative: In summary patient is a 29-year-old who presents the emergency department for evaluation of dizziness, congestion,. Patient is tachycardic upon arrival, afebrile. Unremarkable physical. Differential diagnosis includes viral syndrome, pneumonia, DKA, dehydration. Initial workup will be conducted with labs, VBG, chest x-ray, COVID flu, strep. Initial inventions include IV fluid bolus. Initial workup reviewed by me hypokalemia, hyperglycemia without DKA. Chest x-ray read by radiology was normal, we do feel that there is an atypical pneumonia. Patient was given a dose of Zithromax in the emergency department . Upon repeat evaluation patient remains stable after IV fluids. Given this patient is stable for discharge with a prescription for Zithromax. Return to the emergency department for any worsening symptoms. Sinus tachycardia 122 bpm with no acute ischemic change. ND 155, QRS 119, QTc 489. Normal axis. I was consulted by the ABIGAIL, and we discussed the complexity of the problems being addressed. I approved the treatment and management plan for this patient's care in the Emergency Department, thus performing a substantive portion of the medical decision making. Ronnie Silva MD Critical Care <MARILU Vizcarra - Last Filed: 09/27/24 20:46> Critical Care Time Critical Care Time: No
--- NOTE | 2024-09-27 18:55 | XR_ITS ---
PROCEDURE INFORMATION: Exam: XR Chest Exam date and time: 09/27/2024 6:55 PM Age: 29 years old Clinical indication: Cough TECHNIQUE: Imaging protocol: Radiologic exam of the chest. Views: 2 views. COMPARISON: CR XR CHEST PORTABLE 12/21/2023 8:16 PM FINDINGS: Lungs: No consolidation. Pleural spaces: No significant pleural effusion. No pneumothorax. Heart/Mediastinum: No cardiomegaly. Bones/joints: No displaced fracture. Soft tissues: Unremarkable. IMPRESSION: No definite acute cardiopulmonary disease. If symptoms persist, consider CT for further evaluation.
[2024-09-27 18:56] LABS: Coronavirus 19, PCR Not Detected (NotDetected); Influenza A, PCR Not Detected (NotDetected); Influenza B, PCR Not Detected (NotDetected)
--- NOTE | 2024-09-27 19:03 | ECG_ITS ---
APPROVED REPORT Exam: Resting ECG HR:122 bpm ECG Measurements Heart Rate 122 AXES VA 155 P 55 QRSd 119 QRS 30 QT 417 T 59 QTc 489 Conclusion Sinus tachycardia Nonspecific T wave changes Electronically signed by : JUAN THOMAS, 09/28/2024 15:02:01
[2024-09-27 19:07] LABS: Basophils # 0.1 K/mm3 (0-0.2); Basophils % 0.5 % (0.1-2.0); Eosinophils # 0.2 K/mm3 (0.0-0.4); Eosinophils % 1.8 % (0.1-12.0); Hematocrit 40.8 % (37.0-47.0); Hemoglobin 13.5 g/dL (12.2-16.2); Lymphocytes # 3.4 K/mm3 (0.7-4.5); Lymphocytes % 30.4 % (10-50); Mean Corpuscular HGB Conc 33.1 g/dL (31.8-35.4); Mean Corpuscular Hemoglobin 27.3 pg (27.0-31.2); Mean Corpuscular Volume 82.6 fl (81-99); Mean Platelet Volume 11.4 fl (7.4-10.4); Monocytes # 0.5 K/mm3 (0.1-1.0); Monocytes % 4.7 % (1.7-9.3); Neutrophils # 6.9 K/mm3 (1.8-7.8); Neutrophils % 62.3 % (37.0-80.0); Platelet Count 209 K/mm3 (142-424); Red Blood Count 4.94 M/mm3 (4.20-5.40); Red Cell Distribution Width 13.7 % (11.5-17.5); White Blood Count 11.1 K/mm3 (4.8-10.8)
[2024-09-27 19:09] LABS: Lactate Venous 3.3 mmol/L (0.4-2.0); VBG Base Excess -0.9 mmol/L (-2.4-2.3); VBG HCO3 24.8 mmol/L (23-30); VBG PCO2 46.1 mmol/L (35-51); VBG PH 7.35 mmol/L (7.31-7.41); VBG PO2 45.1 mmol/L (28-40); VBG Total CO2 26.2 mmol/L (23-27)
[2024-09-27 19:13] LABS: Chloride 99 mmol/L (98-107); Potassium 3.6 mmoL/L (3.5-5.1); Sodium 130 mmol/L (136-145)
[2024-09-27 19:16] LABS: Alanine Aminotransferase 40 U/L (12-78); Albumin/Globulin Ratio 1.5 (1.1-1.8); Alkaline Phosphatase 62 U/L (38-126); Anion Gap 9.6 mEq/L (5-15); Aspartate Amino Transferase 33 U/L (14-36); Bilirubin,Total 0.8 mg/dl (0.2-1.3); Blood Urea Nitrogen 11 mg/dl (7-17); Carbon Dioxide 25 mmol/L (22.0-30.0); Creatinine Clearance Estimated 205 mL/min (50-200); Estimated Glomerular Filt Rate 144 ml/min (>60); GFR (African American) 174 ML/MIN (>60); Globulin 2.6 g/dL (1.3-3.2); Magnesium 1.6 mg/dl (1.6-2.3); Total Protein,Serum 6.6 g/dl (6.3-8.2)
[2024-09-27 19:17] LABS: Calcium 9.4 mg/dl (8.4-10.2); Glucose 284 mg/dl (74-100)
[2024-09-27 19:18] LABS: Strep Scrn Group A (Rapid) Negative (Negative)
[2024-09-27] MEDS: 0.9 % SODIUM CHLORIDE 1000ML 1,000 ML 999 ML IV (19:30)
--- NOTE | 2024-09-27 19:32 | PC.NURSE ---
Report received from Marlen FOFANA Skin pink warm and dry. Resp full and easy Speech clear and appropriate. IV infusing without difficulty Site without redness or edema. at bedside.
[2024-09-27 19:33] LABS: Troponin I < 0.01 ng/ml (0.00-0.034)
[2024-09-27 19:47] LABS: Thyroid Stimulating Hormone 0.78 uIU/mL (0.465-4.68)
[2024-09-27] MEDS: AZITHROMYCIN 250MG TABLET 500 MG PO (19:49)
[2024-09-27 20:05] VITALS: BP 122/76; PULSE 101; RESP 16; TEMP 36.9; O2SAT 95
--- NOTE | 2024-09-27 20:05 | PC.NURSE ---
Urine collected and sent to lab.
[2024-09-27 20:08] LABS: Microscopic, Urine URINE MICROSCOPIC (MICROSCOPIC)
[2024-09-27 20:09] LABS: Appearance,Urine CLEAR (Clear); Bilirubin,Urine Negative (Negative); Blood, Urine Negative (Negative); Color,Urine YELLOW (Yellow); Glucose,Urine (UA) 2+ (Negative); Ketones,Urine 1+ (Negative); Leukocyte Esterase,Urine Negative (Negative); Nitrate,Urine Negative (Negative); Protein,Urine Negative (Negative); Specific Gravity, Urine >= 1.030 (1.005-1.030); Urobilinogen,Urine 0.2 EU/dl (0.2)
[2024-09-27 20:10] LABS: Urine Pregnancy, HCG Qual. Negative (Negative)
[2024-09-27 20:21] LABS: Bacteria,Urine Trace /lpf; WBC,Urine Occasional #/hpf (0-3)
[2024-09-27 20:48] VITALS: BP 124/74; PULSE 78; RESP 16; TEMP 37
--- NOTE | 2024-09-27 20:56 | PC.NURSE ---
Pt skin pink warm and dry Resp full and easy at time of discharge. Pt ambulatory
[2024-09-27 23:09] LABS: Reflex Lactic Add Lactic Reflex
== END 2024-09-27 20:57 | disposition home or self-care (01) ==
PROVIDERS: Physician Assistant; Emergency Provider Emergency Medicine
DX: J18.9 Pneumonia, unspecified organism (principal); R05.9 Cough, unspecified; R09.81 Nasal congestion; M79.10 Myalgia, unspecified site; R00.2 Palpitations; R42 Dizziness and giddiness
CPT/HCPCS: 71046; 80050; 80053; 81001; 81025; 82803; 83735; 84443; 84484; 85025; 87430; 87636; 93005; 96360; 99284; J7030